=== PATIENT | female | born 1965 | race Caucasian/White ===

== ENCOUNTER → 2025-01-29 10:39 | Outpatient (REF) | payer BC, SELFPAY ==
[2025-01-29 11:25] LABS: % Basophils 0.3 % (0-2); % Eosinophils 0.6 % (0-6); % Immature Granulocytes 0.2 % (0-0.5); % Lymphocytes 14.7 % (20.5-51.1); % Monocytes 8.5 % (1.7-9.3); % Neutrophils 75.7 % (42.2-75.2); Absolute Lymphocytes 0.9 10^3/uL (1.2-3.4); Absolute Monocytes 0.5 10^3/uL (0.1-0.6); Absolute Neutrophils 4.8 10^3/uL (1.4-6.5); Hematocrit 37.5 % (37.0-47.0); Hemoglobin 12.4 g/dL (12.0-16.0); Mean Corp Hgb Conc. 33.1 g/dL (33.0-37.0); Mean Corpuscular Hgb 29.2 pg (27.0-31.0); Mean Corpuscular Volume 88.2 fL (81.0-99.0); Mean Platelet Volume 9.8 fL (7.4-10.4); Nucleated Red Blood Cells % 0 %; Platelet Count 173 10^3/uL (130-400); Red Blood Cell Count 4.25 10^6/uL (4.20-5.40); Red Cell Dist. Width 12.7 % (11.5-14.5); White Blood Cell Count 6.3 10^3/uL (4.8-10.8)
[2025-01-29 12:07] LABS: ALT (SGPT) 18 U/L (0-35); AST (SGOT) 19 U/L (14-36); Albumin 4.8 g/dl (3.5-5.0); Alkaline Phosphatase 123 U/L (38-126); Blood Urea Nitrogen 15 mg/dl (7-17); Calcium 9.9 mg/dl (8.4-10.2); Carbon Dioxide 31 mmol/L (22-30); Chloride 100 mmol/L (98-107); Glucose 103 mg/dl (70-99); Potassium 4.4 mmol/L (3.5-5.1); Sodium 138 mmol/L (135-145); Total Bilirubin 2.1 mg/dl (0.2-1.3); Total Protein 7.4 g/dl (6.3-8.2); eGFR > 60.00
== END ==
LOC: RAD 10:39
PROVIDERS: ATTENDING PHYSICIAN Nurse Practitioner Adult Health; FAMILY PHYSICIAN Nurse Practitioner Family
DX: R10.32 Left lower quadrant pain (principal)
CPT/HCPCS: 36415; 74177; 80053; 85025; 86140; Q9967

== ENCOUNTER 2025-03-01 07:02 | Emergency (ER) | payer BC, SELFPAY ==
[2025-03-01 07:06] VITALS: BP 142/91
[2025-03-01] MEDS: OMNIPAQUE 50 ML PO (07:28)
[2025-03-01 07:46] LABS: % Basophils 0.5 % (0-2); % Eosinophils 0.4 % (0-6); % Immature Granulocytes 0.3 % (0-0.5); % Lymphocytes 15.7 % (20.5-51.1); % Neutrophils 77.1 % (42.2-75.2); Absolute Lymphocytes 1.2 10^3/uL (1.2-3.4); Absolute Monocytes 0.4 10^3/uL (0.1-0.6); Absolute Neutrophils 5.7 10^3/uL (1.4-6.5); Hematocrit 37.5 % (37.0-47.0); Hemoglobin 12.8 g/dL (12.0-16.0); Mean Corp Hgb Conc. 34.1 g/dL (33.0-37.0); Mean Corpuscular Hgb 29.3 pg (27.0-31.0); Mean Corpuscular Volume 85.8 fL (81.0-99.0); Mean Platelet Volume 9.6 fL (7.4-10.4); Nucleated Red Blood Cells % 0 %; Platelet Count 210 10^3/uL (130-400); Red Blood Cell Count 4.37 10^6/uL (4.20-5.40); Red Cell Dist. Width 12.3 % (11.5-14.5); White Blood Cell Count 7.3 10^3/uL (4.8-10.8)
[2025-03-01 07:51] LABS: Urine Albumin Negative (Neg - Trace); Urine Bilirubin Negative (Negative); Urine Character Clear (Clear); Urine Color Yellow; Urine Glucose Negative (Negative); Urine Ketone Negative (Negative); Urine Leukocyte Negative (Negative); Urine Nitrite Negative (Negative); Urine Occult Blood 2+ (Negative); Urine Urobilinogen Negative (Neg - 1+)
[2025-03-01 07:54] LABS: ALT (SGPT) 18 U/L (0-35); AST (SGOT) 20 U/L (14-36); Albumin 4.5 g/dl (3.5-5.0); Alkaline Phosphatase 115 U/L (38-126); Blood Urea Nitrogen 12 mg/dl (7-17); Calcium 9.8 mg/dl (8.4-10.2); Carbon Dioxide 29 mmol/L (22-30); Chloride 103 mmol/L (98-107); Glucose 112 mg/dl (70-99); Lipase 84 U/L (23-300); Potassium 3.8 mmol/L (3.5-5.1); Sodium 141 mmol/L (135-145); Total Protein 7.5 g/dl (6.3-8.2); eGFR > 60.00
[2025-03-01 08:04] VITALS: BP 125/72
--- NOTE | 2025-03-01 08:09 | ED.GENMED ---
History of Present Illness
General
Chief Complaint: Abdominal Pain
Source: patient
Exam Limitations: none
Time Seen by Provider: 03/01/25 07:11
Nursing documentation reviewed up to this point in time: agreed with
History of Present Illness
History of Present Illness:
59-year-old female presenting to the emergency department today with concerns of left lower quadrant Emir pain initially started as lower abdominal pain now mainly to the left lower quadrant over the past 3 days or so. Recent history of
diverticulitis. She took ciprofloxacin and Flagyl at the time 1 month ago with improving symptoms at that time. Recurrent times of the past few days. No fevers no nausea or vomiting.
Review of Systems
Review of Systems
Allergies reviewed?: Yes
All Other Systems: ROS reviewed and negative except as documented in HPI and ROS
Phy Exam
Physical Exam
Physical Exam:
GENERAL: Alert , in no apparent distress
EYE: pupils equal and reactive
NECK: Supple, no significant adenopathy.
ENT: o/p clr, mmm.
CARDIAC: Regular rate and rhythm .
LUNGS: Clear breath sounds bilaterally, no acute respiratory distress, no wheezes/rales/rhonchi
ABDOMEN: Left lower quadrant abdominal pain otherwise soft benign abdomen
NEUROLOGICAL: Alert and oriented, no focal neuro deficits
SKIN: Warm and dry, skin intact.
MUSCULOSKELETAL: No edema, well perfused.
PSYCH: Normal and appropriate interaction.
Course
Orders/Labs/Results
Orders:
Orders
03/01/25 07:12
CT Abd/pel W Iv And Oral Contr Urgent
Comment:
Reason For Exam: llq pain recent diverticulitis
Iohexol [Omnipaque] See Protocol PO NOW STA
03/01/25 07:29
Complete Blood Count/With Diff Urgent
Comprehensive Metabolic Panel Urgent
Lipase Urgent
Urinalysis Reflex To Culture Urgent
Date Specimen was Collected: 03/01/25
Time Specimen was Collected: 07:27
Urine Microscopic Reflex Cult Urgent
03/01/25 09:57
Amoxicillin 875 mg/Clav 125 mg [Augmentin 875 mg/125 mg] 1 tablet PO NOW STA
Abnormal Lab Results
03/01/25
07:29
Neutrophils % 77.1 H %
(42.2-75.2)
Lymphocytes % 15.7 L %
(20.5-51.1)
Glucose 112 H mg/dl
(70-99)
Ur Occult Blood Reflex 2+ A
(Negative)
Urine RBC 3-6 A /HPF
(0-2)
Urine Bacteria (Reflex) Few A
(Negative)
03/01/25 07:29
03/01/25 07:29
Vital Signs
Initial and Last Documented VS:
Initial Vital Signs
Temp Pulse Resp BP Pulse Ox
98.2 F 99 16 142/91 98
03/01/25 07:06 03/01/25 07:06 03/01/25 07:06 03/01/25 07:06 03/01/25 07:06
Last Documented Vital Signs
Temp Pulse Resp BP Pulse Ox
98.2 F 75 14 131/69 96
03/01/25 07:06 03/01/25 09:00 03/01/25 09:00 03/01/25 09:00 03/01/25 08:04
MDM/Problems Addressed
MDM/Problems Addressed:
59-year-old female presenting with concerns of left lower quadrant abd pain worsening over the past few days. Recent history of diverticulitis. Fevers no nausea or vomiting vital signs normal here. Tenderness palpation to the left lower abdomen.
CT scan was performed that showed a mild diverticulitis. No signs of complications no abscess or perforation. Plan for treatment with antibiotic otherwise she will follow-up closely with gastroenterology.
*Critical Care Note
Total Time (30-74mins, 75-104mins- exclusive of procedures): Not Applicable
ED Attending Note
-
Portions of this chart may have been created with voice recognition software.� Occasional wrong word or��sound alike� substitutions may have occurred due to the inherent limitations of voice recognition software.
Discharge Plan
Departure
Patient Disposition: Home (Routine Discharge)
Date of Disposition: 03/01/25
Time of Disposition: 10:05
Patient with high blood pressure during this ER visit?: No
Condition: Good
Covid-19: Not Applicable
Discharge Problem:
Diverticulitis
Instructions: Diverticulitis (DC)
Prescriptions:
New
amoxicillin-pot clavulanate 875-125 mg tablet
1 tab PO BID 7 Days Qty: 14 0RF
No Action
atorvastatin 10 mg Tablet
10 mg PO DAILY
Referrals:
Carolin Gomez MD [Family Provider] -
Activity Restrictions/Additional Instructions:
You came to the emergency department today with concerns of abdominal pain. You are found to have mild diverticulitis. Please take the Augmentin twice daily and follow-up closely with GI appointment this afternoon. Return for any worsening, new
or concerning symptoms.
Interventions
Interventions:
*Risk Screen - Suicide Last Done: 03/01/25 07:06
*General Assessment Last Done: 03/01/25 07:34
*Neglect/Abuse Screening Last Done: 03/01/25 07:06
*ED- Fall Risk Assessment Last Done: 03/01/25 07:24
*ED COVID-19 Vaccine History Last Done: 03/01/25 07:24
XR-Zmwrcr-Sazkwxdvwy Assessment Last Done: 03/01/25 07:24
Discharge Date and Time
Print Language: ICELANDIC
[2025-03-01 08:42] LABS: Urine Bacteria Few (Negative); Urine White Cell 0-2 /HPF (0-5)
[2025-03-01 09:00] VITALS: BP 131/69
[2025-03-01] MEDS: AUGMENTIN 875 MG/125 MG 1 TABLET PO (10:06)
[2025-03-01] MEDS: TORADOL 30 MG IV (10:06)
== END 2025-03-01 10:32 | disposition home or self-care (01) ==
LOC: EMR 07:02
PROVIDERS: Physician Assistant; EMERGENCY PHYSICIAN Emergency Medicine; FAMILY PHYSICIAN Family Medicine
DX: K57.32 Diverticulitis of large intestine without perforation or abscess without bleeding (principal)
CPT/HCPCS: 96374; 99284; 74177; 80053; 81003; 81015; 83690; 85025; Q9967

== ENCOUNTER 2025-03-16 13:59 | Inpatient (IN) | payer BC, SELFPAY ==
[2025-03-16] VITALS (10 sets, daily range): BP systolic 115–144; BP diastolic 57–108; BMI 22.9
[2025-03-16] MEDS: NSS 500 IV (08:17)
--- NOTE | 2025-03-16 08:23 | ED.GENMED ---
History of Present Illness
General
Chief Complaint: Abdominal Pain
Source: patient
Exam Limitations: none
Time Seen by Provider: 03/16/25 07:46
History of Present Illness
History of Present Illness:
Patient was treated with 2 courses of antibiotics for presumed diverticulitis. Started in January. Initially on a quinolone plus Flagyl. Improved at that time then recurring symptoms in February. Repeat CT at that time showed diverticulosis with some
mild inflammatory changes. At that time was placed on Augmentin. Finished antibiotics 5 days ago. Throughout the last week has had some intermittent episodes of discomfort mostly left lower quadrant. No radiation to the back no nausea or
vomiting no urinary symptoms. No change in bowels. Presents for reevaluation
Past History
Past History
ED Past Medical History: Hypercholesterolemia
ED Past Surgical History: , Gynecological (Total hysterectomy) and Orthopedic
Review of Systems
Review of Systems
All Other Systems: Not applicable
Constitutional: Denies fever
ABD/GI: Denies diarrhea, bloody stools or black stools
: Reports no symptoms
Phy Exam
Physical Exam
Physical Exam:
GENERAL: Alert and oriented in no apparent distress
EYE: Orbits normal.
NECK: Supple
CARDIAC: Regular rate and rhythm without any obvious murmurs.
LUNGS: Clear breath sounds,normal
ABDOMEN: Soft, no distention. Bowel sounds present. Mild reproducible left lower quadrant tenderness. No hernia or masses
NEUROLOGICAL: Alert and oriented , grossly non-focal
SKIN: Warm and dry, no rash or lesion, no discoloration, skin intact.
MUSCULOSKELETAL: No edema,no deformity.Good color
PSYCH: Normal and appropriate interaction.
Course
Orders/Labs/Results
Orders:
Orders
03/16/25 07:57
IV Insert/Care/Rem.- Treatment PRN
0.9% Sodium Chloride 500 ml [Nss] 500 ml IV BOLUS
03/16/25 08:18
Complete Blood Count/With Diff Urgent
Comprehensive Metabolic Panel Urgent
Lipase Urgent
Urinalysis Reflex To Culture Urgent
Date Specimen was Collected: 03/16/25
Time Specimen was Collected: 08:17
Urine Microscopic Reflex Cult Urgent
Urine Culture Urgent
SHIRLEY Source: U
Specimen Description:
Date Specimen was Collected: 03/16/25
Time Specimen was Collected: 08:17
03/16/25 08:48
Iohexol [Omnipaque] See Protocol PO NOW STA
03/16/25 08:49
CT Abd/pel W Iv And Oral Contr Urgent
Comment:
Reason For Exam: Recurring left lower quadrant pain. Diverticuliti
03/16/25 12:34
Zosyn 3.375 grams IVPB NOW Piperacillin/Tazo 3.375 Gram [Zosyn] 3.375 gram in 50 ml IV NOW
Abnormal Lab Results
03/16/25
08:18
Hct 36.1 L %
(37.0-47.0)
Absolute Neuts (auto) 7.1 H 10^3/uL
(1.4-6.5)
Absolute Lymphs (auto) 0.9 L 10^3/uL
(1.2-3.4)
Neutrophils % 82.4 H %
(42.2-75.2)
Lymphocytes % 9.9 L %
(20.5-51.1)
Glucose 105 H mg/dl
(70-99)
Ur Occult Blood Reflex 3+ A
(Negative)
Leukocyte Esterase Rfl 1+ A
(Negative)
Urine WBC (Reflex) 11-15 A /HPF
(0-5)
Urine Bacteria (Reflex) Few A
(Negative)
Urine Albumin (Reflex) 1+ A
(Neg - Trace)
03/16/25 08:18
03/16/25 08:18
Vital Signs
Initial and Last Documented VS:
Initial Vital Signs
Temp Pulse Resp BP Pulse Ox
98.1 F 103 18 131/85 98
03/16/25 07:14 03/16/25 07:14 03/16/25 07:14 03/16/25 07:14 03/16/25 07:14
Last Documented Vital Signs
Temp Pulse Resp BP Pulse Ox
98.1 F 82 19 126/63 97
03/16/25 07:14 03/16/25 11:30 03/16/25 11:30 03/16/25 11:24 03/16/25 08:57
MDM/Problems Addressed
Differential Diagnosis Includes:
Patient describing likely recurring diverticulitis. Not describing urinary symptoms. Has had a total WARD/BSO. However reluctant to repeat the CAT scan at this time. Had a CAT scan in January and a CAT scan in February. Will discussed with GI.
*Radiology
Radiology exam reviewed: radiology read reviewed (Recurrent diverticulitis by CT.)
*Critical Care Note
Total Time (30-74mins, 75-104mins- exclusive of procedures): Not Applicable
Data Reviewed
Review of Other/Old Records Reveals: Labs, Records and Radiology Studies
Update Note
Update Note:
Recurrent diverticulitis by CT. 2 previous episodes both treated appropriately. Failed outpatient management. Warrants inpatient plan
ED Attending Note
-
Portions of this chart may have been created with voice recognition software.� Occasional wrong word or��sound alike� substitutions may have occurred due to the inherent limitations of voice recognition software.
Discharge Plan
Departure
Patient Disposition: Admit
Date of Disposition: 03/16/25
Time of Disposition: 12:35
Presentation/result/management discussed w/ accepting MD/DO: Hospitalist
Discharge Problem:
Recurrent diverticulitis
Prescriptions:
No Action
atorvastatin 10 mg Tablet
10 mg PO DAILY
amoxicillin-pot clavulanate 875-125 mg tablet
1 tab PO BID 7 Days Qty: 14 0RF
Referrals:
Carolin Gomez MD [Family Provider] -
Interventions
Interventions:
*Risk Screen - Suicide Last Done: 03/16/25 07:14
*General Assessment Last Done: 03/16/25 07:14
*Neglect/Abuse Screening Last Done: 03/16/25 07:14
*ED- Fall Risk Assessment Last Done: 03/16/25 08:02
*ED COVID-19 Vaccine History Last Done: 03/16/25 07:14
FA-Dypfhi-Pioaoczbxd Assessment Last Done: 03/16/25 08:02
Discharge Date and Time
Print Language: PAP[place]
[2025-03-16 08:40] LABS: Urine Albumin 1+ (Neg - Trace); Urine Bilirubin Negative (Negative); Urine Character Clear (Clear); Urine Color Yellow; Urine Glucose Negative (Negative); Urine Ketone Negative (Negative); Urine Leukocyte 1+ (Negative); Urine Nitrite Negative (Negative); Urine Occult Blood 3+ (Negative); Urine Specific Gravity 1.015 (<1.030); Urine Urobilinogen Negative (Neg - 1+)
[2025-03-16 08:47] LABS: % Basophils 0.3 % (0-2); % Eosinophils 0.2 % (0-6); % Immature Granulocytes 0.3 % (0-0.5); % Lymphocytes 9.9 % (20.5-51.1); % Monocytes 6.9 % (1.7-9.3); % Neutrophils 82.4 % (42.2-75.2); Absolute Lymphocytes 0.9 10^3/uL (1.2-3.4); Absolute Monocytes 0.6 10^3/uL (0.1-0.6); Absolute Neutrophils 7.1 10^3/uL (1.4-6.5); Hematocrit 36.1 % (37.0-47.0); Hemoglobin 12.7 g/dL (12.0-16.0); Mean Corp Hgb Conc. 35.2 g/dL (33.0-37.0); Mean Corpuscular Volume 85.3 fL (81.0-99.0); Mean Platelet Volume 9.9 fL (7.4-10.4); Nucleated Red Blood Cells % 0 %; Platelet Count 244 10^3/uL (130-400); Red Blood Cell Count 4.23 10^6/uL (4.20-5.40); Red Cell Dist. Width 12.4 % (11.5-14.5); White Blood Cell Count 8.6 10^3/uL (4.8-10.8)
[2025-03-16 08:49] LABS: ALT (SGPT) 15 U/L (0-35); AST (SGOT) 16 U/L (14-36); Albumin 3.9 g/dl (3.5-5.0); Alkaline Phosphatase 91 U/L (38-126); Blood Urea Nitrogen 11 mg/dl (7-17); Calcium 9.3 mg/dl (8.4-10.2); Carbon Dioxide 28 mmol/L (22-30); Chloride 106 mmol/L (98-107); Glucose 105 mg/dl (70-99); Lipase 53 U/L (23-300); Potassium 3.9 mmol/L (3.5-5.1); Sodium 142 mmol/L (135-145); Total Bilirubin 1.3 mg/dl (0.2-1.3); Total Protein 6.5 g/dl (6.3-8.2); eGFR > 60.00
[2025-03-16 08:51] LABS: Urine Squamous Cell >30 /LPF (Few)
[2025-03-16 08:53] LABS: Urine Bacteria Few (Negative)
[2025-03-16 08:54] LABS: Urine Hyaline Cast 0-2 /LPF (0-2); Urine Red Blood Cell 0-2 /HPF (0-2)
[2025-03-16] MEDS: OMNIPAQUE 50 ML PO (08:55)
[2025-03-16] MEDS: ZOSYN 50 IV ×2 (12:42→17:29)
--- NOTE | 2025-03-16 12:50 | HPS.HSE ---
Addendum entered and electronically signed by Panfilo Garcia MD 03/16/25 13:23:
See update note
Original Note:
Family Physician
-
Family Physician: Carolin Gomez MD
Chief Complaint
-
left lower quadarant pain
History of Present Illness
59 year old with PMH for HLD presented with left lower quadrant pain since January. patient stated intermittent non radiating pain.patient was on Quinolone and Flagyl , then she was started on Augmentin, which she finished the course 5 days ago.
denied nausea, vomiting or diarrhea. denied fever, chills, GARNICA, dizzy or syncope. denied chest pain, sob. denied dysuria or hematuria. patient stated left quadrant pain was worse last night. patient stated, some weight loss but she is low fiber diet.
she has appetite either.
CT with diverticulitis. initiated on Zosyn. admitting for further management.
Medical History
Past Medical History
Past Medical History: Reports Other
Additional Past Medical History:
diverticulosis
HLD
Past Surgical History: Reports Other
Additional Past Surgical History:
bunion removal
hysterectomy
Social History
Tobacco: Non-smoker
Alcohol: None
Drug: None
Living: With Family
Employment: Employed
Family History
Family History: Not pertinent
Allergies / Home Medications
Allergies reflects when Allergies were last updated in [facility].
Home Medications with original date entered in [facility]
Allergy/Medication List:
Allergies
Allergy/AdvReac Type Severity Reaction Status Date / Time
No Known Allergies Allergy Verified 03/16/25 07:16
Home Medications
atorvastatin 10 mg tablet 10 mg PO DAILY 03/01/25
calcium carbonate 500 mg PO DAILY 03/16/25
cholecalciferol (vitamin D3) 25 mcg (1,000 unit) tablet 25 mcg PO DAILY 03/16/25
Review of Systems
-
Constitutional: Reports No Symptoms
EENT: Reports No Symptoms
Respiratory: Reports No Symptoms
Cardiac: Reports No Symptoms
Abdomen/GI: Reports Abdominal Pain
: Reports No Symptoms
Musculoskeletal: Reports No Symptoms
Skin: Reports No Symptoms
Neurological: Reports No Symptoms
Endocrine: Reports No Symptoms
Hematologic/Lymphatic: Reports No Symptoms
Psych: Reports No Symptoms
Physical Exam
Vital Signs
Vital Signs
Temp Pulse Resp BP Pulse Ox
98.1 F 82 19 126/63 97
03/16/25 07:14 03/16/25 11:30 03/16/25 11:30 03/16/25 11:24 03/16/25 08:57
Physical Exam
General: Well Developed, Well Nourished and No Apparent Distress
HEENT: NormoCephalic, Moist mucous membranes and Atraumatic
Respiratory: Clear
Cardiac: S1/S2 and Regular Rhythm; No Murmur or Rub
GI: Soft, Non Tender, Non Distended and Normal Bowel Sounds; No Organomegaly
Rectal: Deferred by Provider
Musculoskeletal: No Clubbing, No Cyanosis and No Edema
Skin: No Rash
Neuro: AO x 3 and Nonfocal/grossly intact
Psych: Calm
Laboratory Results
-
03/16/25 08:18
03/16/25 08:18
Laboratory Results
Total Bilirubin 1.3 mg/dl (0.2-1.3) 03/16/25 08:18
AST 16 U/L (14-36) 03/16/25 08:18
ALT 15 U/L (0-35) 03/16/25 08:18
Alkaline Phosphatase 91 U/L (38-126) 03/16/25 08:18
Lipase 53 U/L (23-300) 03/16/25 08:18
Data Reviewed
-
CT Scan: Report Reviewed by me
Lab Data: Labs Reviewed by me
Impression/Plan
-
#recurrent diverticulitis
-failed outpatient management
-CT abdomen pelvis with interval recurrence of moderate diverticulitis within the proximal sigmoid colon. No extra luminal gas or fluid collections. There is also severe diverticular disease within the more distal sigmoid colon which appears
diffusely thickened, which is possibly chronic in nature. A sigmoid colitis is also consideration. Trace amount of free fluid in the pelvis.
-iv Zosyn continued
-NPO
-fluids continued for hydration.
-Tylenol prn for fever and pain
-colorectal consulted
#HLD
-statin held
#DVT prophylaxis
-Lovenox
#CODE status
-full code
--- NOTE | 2025-03-16 13:13 | W.PN.UPDATE ---
Update Note
Progress Note Update
This note serves as an addendum to the H&P by motor grader operator TRE
Imelda OLMAN
HPI
59F HLD HX diverticulitis , s/p 2 courses of ( LVQ + FDlagyl and then Augmentin) for presumed diverticulitis
- Started in January this year
- Initially on a quinolone plus Flagyl. Improved at that time then recurring symptoms in February.
- Repeat CT at that time showed diverticulosis with some mild inflammatory changes then placed on Augmentin.
Finished antibiotics 5 days ago.
- Throughout the last week has had some intermittent episodes of discomfort mostly left lower quadrant.
- No radiation to the back no nausea or vomiting no urinary symptoms.
- No change in bowels.
Selected VS
03/16/25
07:14 03/16/25
08:09
Temp 98.1 F
Pulse 103 81
Resp Rate 18
Blood pressure 131/85
SaO2 98
Oxygen Mode of Delivery Room air
PE
Gen: no apparent distress, not toxic
HEENT: anicteric
Neck: supple
Lungs: CTA
Cor: RRR S1 S2
Abdomen: Soft, no distention. Bowel sounds present. Mild reproducible left lower quadrant tenderness
HUNTING SALES LEADER: AAO3 , NFND
MS: no edema
Psych:Normal and appropriate interaction.
Labs
03/16/25
08:18
WBC 8.6
Hgb 12.7
Plt Count 244
Creatinine 0.6
eGFR > 60.00
Lipase 53
Urine WBC (Reflex) 11-[address] Abd/pel W Iv And Oral Contr
1. Interval recurrence of moderate diverticulitis within the proximal sigmoid colon.
No extra luminal gas or fluid collections.
There is also severe diverticular disease within the more distal sigmoid colon which appears diffusely thickened, which is possibly chronic in nature.
A sigmoid colitis is also consideration. Trace amount of free fluid in the pelvis.
2. Additional findings above.
NO PRIOR hospitalist admission:
ASSESSMENT & PLAN
Failed OP ABx ( LVQ + Flagyl and Augementin) Interval recurrence of diverticulitis
No extra luminal gas or fluid collections.
Underlying severe diverticular disease within the more distal sigmoid colon
- NPO and IV NS
- Empiric Zosyn
- F/U T, WCC and serial abdominal exam
- CRS consult
Abn UA : No urinary symptoms suspect reactive
- Observe UCx
HLD
- Hold Atorvastatin
DVT Px: LMWH
Code: Full
IP MS
--- NOTE | 2025-03-16 13:57 | CON.CRS ---
Documented by User: Emerita Vang PA-C 03/16/25 15:17
Consultation
-
Date/Time Consultation Requested: 03/16/2025, 13:18
Date/Time Consultation Performed: 03/16/2025, 14:30
Requesting Provider: Dhiraj RAMIREZ
Performing Provider: Roddy Pardo MD
Reason for Consultation: diverticulitis
Medical History
-
Chief Complaint: abdominal pain
History of Present Illness:
Patient is a 59-year-old female who has had left lower quadrant pain since last month. She was started on Augmentin as an outpatient and finished antibiotics about 5 days ago. The left lower quadrant pain was worse in nature last night and she
went to the emergency department. CT of the abdomen and pelvis shows interval recurrence of moderate diverticulitis within the proximal sigmoid colon. No extra luminal gas or fluid collections. There is also severe diverticular disease within the
more distal sigmoid colon which appears diffusely thickened, which is possibly chronic in nature. A sigmoid colitis is also consideration. Trace amount of free fluid in the pelvis. Previous to this CT scan she did have 1 on 03/01/2025 which showed
moderate diverticulosis in the sigmoid colon and inflammatory change to the adjacent sigmoid colon. She also had 1 in January 2025 which showed acute sigmoid diverticulitis. No evidence of an abscess or extraluminal air.
Her last colonoscopy was in [address] Andersen which showed mild diverticulosis in the sigmoid colon and descending colon. Otherwise normal.
This is her first attack of diverticulitis. Previous surgeries include a hysterectomy.
Past Medical History
Past Medical History: Other (diverticulosis, HLD)
Past Surgical History: Other (hysterectomy, bunion removal)
Social History
Tobacco: Non-Smoker
Alcohol: None
Drug: None
Family History
Family History: Reviewed & Not Pertinent
Allergies / Home Medications
Allergy/AdvReac Type Severity Reaction Status Date / Time
No Known Allergies Allergy Verified 03/16/25 07:16
�Medication �Instructions �Recorded �Confirmed �Type
atorvastatin 10 mg tablet 10 mg PO DAILY 03/01/25 03/16/25 History
calcium carbonate 500 mg PO DAILY 03/16/25 03/16/25 History
cholecalciferol (vitamin D3) 25 25 mcg PO DAILY 03/16/25 03/16/25 History
mcg (1,000 unit) tablet
Review of Systems
-
History Source: Patient
Abdomen/GI: Abdominal Pain (LLQ )
A 10 point review of systems was completed, and was negative except as per HPI.
Physical Exam
Vital Signs
Temp 98.1 F 03/16/25 07:14
Pulse 82 03/16/25 11:30
Resp Rate 19 03/16/25 11:30
Blood pressure 126/63 03/16/25 11:24
SaO2 97 03/16/25 08:57
03/15/25 03/16/25 03/17/25
06:59 06:59 06:59
Actual Weight 58.9 kg
Lab Results / Allergies
03/16/25 08:18
03/16/25 08:18
WBC 8.6 10^3/uL (4.8-10.8) 03/16/25 08:18
Hgb 12.7 g/dL (12.0-16.0) 03/16/25 08:18
Hct 36.1 % (37.0-47.0) L 03/16/25 08:18
Plt Count 244 10^3/uL (130-400) 03/16/25 08:18
Abs Immat Gran (auto) 0.0 10^3/uL (0-0.05) 03/16/25 08:18
Neutrophils % 82.4 % (42.2-75.2) H 03/16/25 08:18
Allergy/AdvReac Type Severity Reaction Status Date / Time
No Known Allergies Allergy Verified 03/16/25 07:16
Physical Exam
General: Well Developed and Well Nourished
GI: Soft
Skin: Warm and Dry
Neuro: AO x 3
Psych: Calm
Data Reviewed
-
CT Scan: Image Personally Visualized and interpreted, Report Reviewed by me and Discussed with Patient
Labs: Labs Reviewed by me, Discussed with Physician and Discussed with Patient
Old Records: Reviewed
Assessment / Plan
-
Assessment: 59-year-old female with smoldering sigmoid diverticulitis
Plan:
- Continue IV antibiotics
- Trend WBC
- Remain n.p.o.
- No need for urgent surgery at this time. If she will worsen she will require a colectomy with colostomy creation. Will follow.

Documented by User: Roddy Pardo MD 03/16/25 22:25
Medical History
Past Medical History
Past Surgical History: Other (hysterectomy, csection x2, bunion removal)
Family History
Family History: Other (father - prostate CA, no CRC)
[2025-03-16] MEDS: NSS 1000 IV (16:16)
--- NOTE | 2025-03-16 16:53 | CON.ID ---
Consultation
-
Date/Time Consultation Requested: March 16, 2025 1334
Date/Time Consultation Performed: March 16, 2025 1650
Requesting Provider: JAMES Vides
Performing Provider: Dr. Latisha Pappas
Reason for Consultation: recurrent diverticulitis
Chief Complaint / Past History
Chief Complaint
Abdominal pain
History of Present Illness
59-year-old female without significant medical problems who presented to the hospital yesterday due to worsening abdominal pain. Her history started in early January when she developed lower abdominal pain. Her PCP ordered CT of the abdomen pelvis
which showed sigmoid diverticulitis. She was prescribed 10-day course of ciprofloxacin and metronidazole with some improvement without resolution. On March 01 she presented to the ER due to worsening cramping abdominal pain. CAT scan at that time
showed significant improvement of the previous diverticulitis, resolving. ED prescribed 10-day course of Augmentin. She completed the Augmentin approximately 5 days prior to admission. She continued to have abdominal discomfort which then became
more severe the night prior and therefore she came to the ER. She is afebrile. Normal white count. CAT scan of the abdomen pelvis shows the recurrence of moderate proximal sigmoid colon diverticulitis. She started on Zosyn. Patient denies
fevers or chills. No nausea or vomiting. No diarrhea. No prior history of diverticulitis in the past.
Past History
Additional Past Medical History:
HLD
Diverticulosis
Additional Past Surgical History:
Hysterectomy
Allergy History:
No Known Allergies Allergy (Verified 03/16/25 07:16)
Medications Reviewed: Yes
Current Antibiotics:
Zosyn
Social History
Tobacco: Non-Smoker
Alcohol: None
Drug: None
Employment: Employed (physical laboratory assistant)
Family History
Family History: Not Pertinent
Review of Systems
Review of Systems
General: Change in Appetite; Negative Fever or Chills
HEENT: Negative Sinus Problems, Headache or Pharyngitis
Cardiovascular: Negative Chest Pain or Dyspnea
Respiratory: Negative Dyspnea or Cough
Gasteroenterology: Negative Nausea, Vomiting or Diarrhea
Genital / Urological: Negative Dysuria or Flank Pain
Endocrine: Negative Weakness
Skin / Hair / Nails: Negative Rash
All systems: All other systems were reviewed and were negative
Vital Signs
Temp Pulse Resp BP Pulse Ox
98.3 F 87 17 144/73 96
03/16/25 16:03 03/16/25 16:03 03/16/25 16:03 03/16/25 16:03 03/16/25 16:03
Physical Exam
Physical Exam
Constitutional: No Acute Distress and Comfortable
Eyes: No Conjunctival Hemorrhage and Sclera Anicteric
Cardiovascular: Regular Rate and S1/S2
Pulmonary: Clear
Gastrointestinal: Soft, Tender (Left lower quadrant), Non Distended and Normal Bowel Sounds
Extremities: Negative Edema
Neurological: AO x 3
Lab / Diagnostic Study Results
03/16/25 08:18
03/16/25 08:18
Abs Immat Gran (auto) 0.0 10^3/uL (0-0.05) 03/16/25 08:18
Absolute Neuts (auto) 7.1 10^3/uL (1.4-6.5) H 03/16/25 08:18
Absolute Lymphs (auto) 0.9 10^3/uL (1.2-3.4) L 03/16/25 08:18
Absolute Monos (auto) 0.6 10^3/uL (0.1-0.6) 03/16/25 08:18
Absolute Basos (auto) 0.0 10^3/uL (0-0.2) 03/16/25 08:18
Immature Gran % 0.3 % (0-0.5) 03/16/25 08:18
Neutrophils % 82.4 % (42.2-75.2) H 03/16/25 08:18
Lymphocytes % 9.9 % (20.5-51.1) L 03/16/25 08:18
Monocytes % 6.9 % (1.7-9.3) 03/16/25 08:18
Eosinophils % 0.2 % (0-6) 03/16/25 08:18
Basophils % 0.3 % (0-2) 03/16/25 08:18
Ur Squamous Epith Cells >30 /LPF (Few) 03/16/25 08:18
Microbiology Results
Micro:
03/16/25 08:18 Urine Culture - Pending
Urine
03/16/25 CT a/p: Interval recurrence of moderate diverticulitis within the proximal sigmoid colon. No extra luminal gas or fluid collections. There is also severe diverticular disease within the more distal sigmoid colon which appears diffusely
thickened, which is possibly chronic in nature. A sigmoid colitis is also consideration.
03/01/25 CT a/p: Moderate sigmoid diverticulosis. Very mild inflammatory change adjacent to the sigmoid colon, significantly improved compared to prior study, consistent with significantly improved sigmoid diverticulitis.
01/29/25 CT a/p: Findings consistent with acute sigmoid diverticulitis. Pronounced inflammatory change adjacent to the proximal sigmoid colon, and small amount of reactive free fluid along the left paracolic gutter.
Assessment / Plan
# Sigmoid diverticulitis waxing, waning sxs x 2 months despite 2 courses of outpt abx
- Continue Zosyn.
-Follow for clinical improvement.
[2025-03-16] MEDS: LOVENOX 40 MG SC (17:29)
--- NOTE | 2025-03-16 19:28 | PTCARENOTE ---
Patient transferred from [facility] and expresses no needs at this time.
[2025-03-17] MEDS: ZOSYN 50 IV ×5 (00:18→23:22)
[2025-03-17] MEDS: TORADOL 15 MG IV (00:37)
[2025-03-17] MEDS: NSS 1000 IV ×3 (04:43→22:38)
[2025-03-17 07:00] VITALS: BP 109/80
[2025-03-17] MEDS: OSCAL CAL 500 500 MG PO (08:20)
[2025-03-17] MEDS: VITAMIN D3 (cholecalciferol) 25 MCG PO (08:20)
[2025-03-17 09:08] LABS: Hematocrit 33.4 % (37.0-47.0); Hemoglobin 11.5 g/dL (12.0-16.0); Mean Corp Hgb Conc. 34.4 g/dL (33.0-37.0); Mean Corpuscular Hgb 29.2 pg (27.0-31.0); Mean Corpuscular Volume 84.8 fL (81.0-99.0); Platelet Count 197 10^3/uL (130-400); Red Blood Cell Count 3.94 10^6/uL (4.20-5.40); Red Cell Dist. Width 12.4 % (11.5-14.5); White Blood Cell Count 9.5 10^3/uL (4.8-10.8)
[2025-03-17 09:44] LABS: ALT (SGPT) 12 U/L (0-35); AST (SGOT) 15 U/L (14-36); Albumin 3.9 g/dl (3.5-5.0); Alkaline Phosphatase 97 U/L (38-126); Blood Urea Nitrogen 10 mg/dl (7-17); Calcium 8.7 mg/dl (8.4-10.2); Carbon Dioxide 20 mmol/L (22-30); Chloride 109 mmol/L (98-107); Estimated Creatinine Clearance 84 ml/min; Glucose 67 mg/dl (70-99); Magnesium 1.7 mg/dl (1.6-2.3); Potassium 3.5 mmol/L (3.5-5.1); Sodium 143 mmol/L (135-145); Total Bilirubin 2.1 mg/dl (0.2-1.3); Total Protein 6.1 g/dl (6.3-8.2); eGFR > 60.00
--- NOTE | 2025-03-17 11:03 | W.PN.GS2 ---
Addendum entered and electronically signed by Harjit Diana MD 03/17/25 12:16:
Patient seen and examined with surgical TOMBSTONE SETTER. Agree with documented progress note.
Pain a bit improved compared to presentation yesterday. Still with discomfort.
Multiple loose/frequent bowel movements
No nausea or vomiting.
Tmax 100 low-grade tachycardia on last vitals
NAD AAO x 3 resting comfortably in hospital bed
ABD: Soft, nondistended. Mild tenderness to palpation left lower quadrant but no rebound rigidity or guarding
A/P: 59-year-old female with subacute smoldering sigmoid diverticulitis which has been fluctuating and symptoms since January
Continue Zosyn
Checking C. difficile
Okay for clear liquids
Will follow
Original Note:
Today's Communication / Plan
-
ABX
CLD
Assessment / Plan
-
59 yo female presenting with acute recurrent versus smoldering sigmoid diverticulitis (first episode in january and again earlier this month, managed as OP with PO agents)
AFVSS
No Leukocytosis
Diarrhea overnight likely secondary to inflammatory changes/PO contrast, c-diff was sent and pending
Pain starting to improve
--ABX as per ID
--Ok for clear liquids
--Analgesics prn
--C/W IVF
--VTE ppx with lovenox/scds
No plans for emergent surgery today, will follow labs/exams for continued improvement
Subjective Data
-
Date of Service: March 17, 2025
Patient seen and examined at bedside with Dr. Diana. Denies n/v. Began having diarrhea overnight. Pain mildly improved.
Objective Data
-
Intake and Output
03/16/25 03/17/25 03/18/25
06:59 06:59 06:59
Other:
Number of approximated MODERATE 1
amounts of urine
Vital Signs
Temp Pulse Resp BP Pulse Ox
100.0 F 108 16 109/80 94
03/17/25 07:00 03/17/25 07:00 03/17/25 07:00 03/17/25 07:00 03/17/25 08:00
Lab Results
03/17/25 06:58
03/17/25 06:58
Calcium 8.7 mg/dl (8.4-10.2) 03/17/25 06:58
Magnesium 1.7 mg/dl (1.6-2.3) 03/17/25 06:58
Total Bilirubin 2.1 mg/dl (0.2-1.3) H D 03/17/25 06:58
AST 15 U/L (14-36) 03/17/25 06:58
ALT 12 U/L (0-35) 03/17/25 06:58
Alkaline Phosphatase 97 U/L (38-126) 03/17/25 06:58
Total Protein 6.1 g/dl (6.3-8.2) L 03/17/25 06:58
Albumin 3.9 g/dl (3.5-5.0) 03/17/25 06:58
Physical Exam
-
NAD
ABD soft, ND, tender to LLQ into suprapubic area
--- NOTE | 2025-03-17 11:19 | W.PN.ID1 ---
Date of Service
Date of Service: March 17, 2025
Today's Communication
Continue Zosyn. Check C. diff.
Assessment / Plan
# Sigmoid diverticulitis waxing, waning sxs x 2 months despite 2 courses of outpt abx
- Continue Zosyn (d2)
-Follow for clinical improvement.
# Diarrhea
- Check stool for C. diff.
Chief Complaint
-: Other (Diverticulitis)
Subjective / Review of Systems
Abdominal pain is the same. Complaining of diarrhea every 2 hours.
Vital Signs / Physical Exam
Vital Signs
Vital Signs
Temp Pulse Resp BP Pulse Ox
100.0 F 108 16 109/80 94
03/17/25 07:00 03/17/25 07:00 03/17/25 07:00 03/17/25 07:00 03/17/25 08:00
Physical Exam
Constitutional: No Acute Distress and Comfortable
Cardiovascular: Regular Rate and S1/S2
Pulmonary: Clear
Gastrointestinal: Tender (Left lower quadrant), Non Distended and Normal Bowel Sounds
Extremities: Negative Edema
Neurological: AO x 3
Objective Data
Lab Data
Lab Results
03/17/25 06:58
03/17/25 06:58
Estimated Creat Clear 84 ml/min 03/17/25 06:58
Total Bilirubin 2.1 mg/dl (0.2-1.3) H D 03/17/25 06:58
AST 15 U/L (14-36) 03/17/25 06:58
ALT 12 U/L (0-35) 03/17/25 06:58
Alkaline Phosphatase 97 U/L (38-126) 03/17/25 06:58
Most recent labs reviewed.
Micro Results:
03/16/25 08:18 Urine Culture - Final
Urine
03/17/25 11:01 C. difficile GDH Antigen & Toxins - Pending
Feces/Stool
03/16/25 CT a/p: Interval recurrence of moderate diverticulitis within the proximal sigmoid colon. No extra luminal gas or fluid collections. There is also severe diverticular disease within the more distal sigmoid colon which appears diffusely
thickened, which is possibly chronic in nature. A sigmoid colitis is also consideration.
03/01/25 CT a/p: Moderate sigmoid diverticulosis. Very mild inflammatory change adjacent to the sigmoid colon, significantly improved compared to prior study, consistent with significantly improved sigmoid diverticulitis.
01/29/25 CT a/p: Findings consistent with acute sigmoid diverticulitis. Pronounced inflammatory change adjacent to the proximal sigmoid colon, and small amount of reactive free fluid along the left paracolic gutter.
--- NOTE | 2025-03-17 12:45 | W.PN.HOSP.TC ---
Addendum entered and electronically signed by Lissette Bee MD 03/17/25 16:40:
I saw and evaluated the patient independently. I reviewed the resident�s note and agree with findings and plan as documented by Dr. Collazo.
GENERAL: well developed, well nourished, female in no apparent distress
HEENT: NC/AT
HEART: regular rate and rhythm, +S1, +S2
LUNGS : clear to auscultation bilaterally
ABDOM: soft, tender LLQ without guarding or rebound, nondistended, + bowel sounds
EXT: no cyanosis, clubbing, or edema
NEUROLOGIC: grossly intact
Recurrent diverticulitis secondary to failure with 2 courses of antibiotics--confirmed on CT scan--clears/IVF--IV zosyn--c. diff positive--so dificid added--apprec ID/CRS--pain control as needed
C. difficile infection positive--Patient started on fidaxomicin 200 mg twice daily
Hyperbilirubinemia-- Total bilirubin is 2.1 and elevated, continue to trend--? Gilbert's disease?
Hyperlipidemia-- Atorvastatin on hold due to limited PO status
Osteopenia-- Continue ELECTRIC WIRER cholecalciferol and calcium carbonate
DVT proph--Lovenox
code status --Full code
Original Note:
Today's Communication/Plan
-
- F/u with Infectious disease
- Continue current antibiotic regime
Assessment / Plan
Assessment / Plan
Recurrent chronic diverticulitis secondary to failure with 2 courses of antibiotics:
- Confirmed on abdomen/pelvis CT
- Continue patient on n.p.o.
- Continue IV fluids
- Continue IV Zosyn, infectious diseases also recommends continuing IV Zosyn, wbc 8.4 and normal, afebrile
- Infectious disease following
- Patient advanced to clear liquids by general surgery
- On Tylenol and Toradol for as needed pain relief
- Colorectal surgery saw her and recommended nonoperative management and repeat colonoscopy in 6 to 8 weeks
C. difficile infection positive:
-Patient started on fidaxomicin 200 mg twice daily
- Hand hygiene and contact precautions in place
Hyperbilirubinemia:
- Total bilirubin is 2.1 and elevated, continue to trend
Hyperlipidemia:
- Atorvastatin on hold due to limited PO status
Osteopenia:
- Continue ELECTRIC WIRER cholecalciferol and calcium carbonate
- calcium level is 8.7 and normal
DVT prophylaxis is Lovenox 40 mg
Full code
Anticipated Discharge: 24 - 48 hours
Subjective/Interval History
-
Date of Service: March 17, 2025
59-year-old female with a past medical history of hyperlipidemia and diverticulosis presented with left lower quadrant pain. A abdominal pelvic CT confirmed that she had diverticulitis. She has had 2 episodes of diverticulitis both confirmed by CT
scan of the abdomen 2 times in the past year. She has been on 2 courses of antibiotics, the first time on quinolone plus Flagyl than the second time on Augmentin ( finished just 5 days ago).
Today she is complaining of multiple episodes of watery diarrhea this morning.
Objective Data
-
Labs:
Laboratory Results
03/17/25
06:58
WBC 9.5
Hgb 11.5 L
Hct 33.4 L
Plt Count 197
Sodium 143
Potassium 3.5
Chloride 109 H
Carbon Dioxide 20 L
BUN 10
Creatinine 0.6
Glucose 67 L
Calcium 8.7
Total Bilirubin 2.1 H D
AST 15
ALT 12
Alkaline Phosphatase 97
Vital Signs:
Vital Signs
Temp Pulse Resp BP Pulse Ox
100.0 F 108 16 109/80 94
03/17/25 07:00 03/17/25 07:00 03/17/25 07:00 03/17/25 07:00 03/17/25 08:00
Review of Systems
-
History Source: Patient
Constitutional: Denies Fever, Fatigue or Chills
Respiratory: Denies Cough, Hemoptysis or Wheezing
Cardiac: Denies Chest Pain, Diaphoresis or Palpitations
Abdomen/GI: Reports Abdominal Pain and Diarrhea; Denies Nausea, Vomiting, Constipated, Bloody Stools or Anorexia
Genitourinary: Denies Dysuria
Musculoskeletal: Denies Joint Pain, Joint Swelling, Arthralgias or Myalgias
Skin: Denies Itching or Rash
Neuro: Denies Dizzy, Headache or Weakness
Physical Exam
-
General: Well Developed, Well Nourished and Comfortable
Respiratory: Clear to Auscultation
Cardiac: Regular Rhythm and S1/S2
GI: Soft, Nondistended, Normal Bowel Sounds and Tender (Mild left lower tenderness on palpation)
Musculoskeletal: Negative No Clubbing or No Edema
Skin: Warm and Dry
Neuro: Awake, Alert, Oriented and AO x 3
Data Reviewed
-
CT Scan: Report Reviewed by me and Discussed with Physician
Labs: Labs Reviewed by me and Discussed with Physician
[2025-03-17] MEDS: DIFICID 200 MG PO ×2 (14:41→19:26)
[2025-03-17 15:50] VITALS: BP 128/58
--- NOTE | 2025-03-17 16:38 | PTCARENOTE ---
Rec'd pt from [id number] bed 2. pt ambulated to room. Denies pain. Oriented to room. call alas in reach.
[2025-03-17] MEDS: LOVENOX 40 MG SC (17:36)
[2025-03-17 23:00] VITALS: BP 109/59
[2025-03-18] MEDS: ZOSYN 50 IV ×4 (05:30→23:09)
[2025-03-18 07:00] VITALS: BP 112/57
[2025-03-18 07:15] LABS: Hematocrit 29.4 % (37.0-47.0); Hemoglobin 10.1 g/dL (12.0-16.0); Mean Corp Hgb Conc. 34.4 g/dL (33.0-37.0); Mean Corpuscular Hgb 29.2 pg (27.0-31.0); Mean Platelet Volume 9.6 fL (7.4-10.4); Platelet Count 172 10^3/uL (130-400); Red Blood Cell Count 3.46 10^6/uL (4.20-5.40); Red Cell Dist. Width 12.5 % (11.5-14.5); White Blood Cell Count 7.2 10^3/uL (4.8-10.8)
[2025-03-18 07:35] LABS: Blood Urea Nitrogen 4 mg/dl (7-17); Calcium 8.4 mg/dl (8.4-10.2); Carbon Dioxide 24 mmol/L (22-30); Chloride 109 mmol/L (98-107); Estimated Creatinine Clearance 72 ml/min; Glucose 96 mg/dl (70-99); Potassium 3.7 mmol/L (3.5-5.1); Sodium 142 mmol/L (135-145); eGFR > 60.00
[2025-03-18] MEDS: DIFICID 200 MG PO ×2 (08:36→19:59)
[2025-03-18] MEDS: OSCAL CAL 500 500 MG PO (08:36)
[2025-03-18] MEDS: VITAMIN D3 (cholecalciferol) 25 MCG PO (08:36)
[2025-03-18] MEDS: NSS 1000 IV ×2 (09:46→21:14)
--- NOTE | 2025-03-18 10:06 | W.PN.GS2 ---
Addendum entered and electronically signed by Harjit Diana MD 03/18/25 10:38:
Patient seen and examined. Feeling better.
Tolerating liquid diet without exacerbation of pain.
Continues with frequent loose stools.
AFVSS
ABD: Soft, very minimal tenderness left side without any rebound rigidity or guarding
A/P: 59-year-old female with subacute/persistent sigmoid diverticulitis (without abscess or phlegmon)and now superimposed C. difficile colitis
Appreciate ID assistance with antibiotic management
Given clinical improvement okay for low residue diet as tolerated
Original Note:
Today's Communication / Plan
-
ADAT
Assessment / Plan
-
59 yo female presenting with acute recurrent versus smoldering sigmoid diverticulitis (first episode in january and again earlier this month, managed as OP with PO agents)
AFVSS
No Leukocytosis
+C-diff, started on Dificid 03/17
Pain continues to improve
--ABX management as per ID
--Tolerating clears, ok to ADAT to low residue
--Analgesics prn
--C/W IVF
--VTE ppx with lovenox/scds
Will continue to follow labs/exams for improvement, no plans for surgery emergently
Subjective Data
-
Date of Service: March 18, 2025
Patient seen and examined at bedside with Dr. Diana. Denies n/v. Abdominal pain improving. Diarrhea persists, passing liquid stools every time she voids.
Objective Data
-
Intake and Output
03/17/25 03/18/25 03/19/25
06:59 06:59 06:59
Intake Total 1779
Balance 1779 / 1779
Intake:
Oral fluids 480 / 480
IV fluids (Total) 1200 / 1200
IV piggybacks 100 / 100
Other:
Number of approximated MODERATE 1 1
amounts of urine
Number of approximated LARGE 1
amounts of urine
Vital Signs
Temp Pulse Resp BP Pulse Ox
98.7 F 70 18 112/57 99
03/18/25 07:00 03/18/25 07:00 03/18/25 07:00 03/18/25 07:00 03/18/25 07:00
Lab Results
03/18/25 06:51
03/18/25 06:51
Calcium 8.4 mg/dl (8.4-10.2) 03/18/25 06:51
Magnesium 1.7 mg/dl (1.6-2.3) 03/17/25 06:58
Total Bilirubin 2.1 mg/dl (0.2-1.3) H D 03/17/25 06:58
AST 15 U/L (14-36) 03/17/25 06:58
ALT 12 U/L (0-35) 03/17/25 06:58
Alkaline Phosphatase 97 U/L (38-126) 03/17/25 06:58
Total Protein 6.1 g/dl (6.3-8.2) L 03/17/25 06:58
Albumin 3.9 g/dl (3.5-5.0) 03/17/25 06:58
Physical Exam
-
NAD
ABD soft, ND, tender to LLQ (mild), no rebound/rigidity/guarding
--- NOTE | 2025-03-18 11:14 | W.PN.HOSP.TC ---
Today's Communication/Plan
-
- F/u with Infectious disease
- F/u general surgery
- Continue current antibiotic regime
- F/u colonoscopy outpatient
Assessment / Plan
Assessment / Plan
Recurrent chronic diverticulitis secondary to failure with 2 courses of antibiotics:
- On physical exam today, she is still has slight mild tenderness of her left lower abdomen
- Confirmed on abdomen/pelvis CT
- Continue IV fluids
- Continue IV Zosyn, infectious diseases also recommends continuing IV Zosyn, wbc 7.2 and normal, afebrile
- Infectious disease following
- Patient advanced to low residue as per general surgery recommendation
- On Tylenol and Toradol for as needed pain relief
- Colorectal surgery saw her and recommended nonoperative management and repeat colonoscopy in 6 to 8 weeks
C. difficile infection positive:
- patient is still having loose bowel movements today
-Patient started on fidaxomicin 200 mg twice daily
- Hand hygiene and contact precautions in place
Hyperbilirubinemia:
- Total bilirubin is 2.1 and elevated, continue to trend
Hyperlipidemia:
- Atorvastatin on hold due to limited PO status
Osteopenia:
- Continue POLICE MANAGER cholecalciferol and calcium carbonate
- calcium level is 8.4 and normal
DVT prophylaxis is Lovenox 40 mg
Full code
Anticipated Discharge: 24 - 48 hours
Subjective/Interval History
-
Date of Service: March 18, 2025
Patient is still having watery diarrhea, 3-4 episodes, decreased in intensity since yesterday.
Objective Data
-
Labs:
Laboratory Results
03/18/25
06:51
WBC 7.2
Hgb 10.1 L
Hct 29.4 L
Plt Count 172
Sodium 142
Potassium 3.7
Chloride 109 H
Carbon Dioxide 24
BUN 4 L
Creatinine 0.7
Glucose 96
Calcium 8.4
Vital Signs:
Vital Signs
Temp Pulse Resp BP Pulse Ox
98.7 F 70 18 112/57 99
03/18/25 07:00 03/18/25 07:00 03/18/25 07:00 03/18/25 07:00 03/18/25 07:00
I&O
03/17/25 03/18/25 03/19/25
06:59 06:59 06:59
Intake Total 1779
Balance 1779
Review of Systems
-
History Source: Patient
All other systems: Reviewed and negative
Abdomen/GI: Reports Abdominal Pain and Diarrhea (watery diarrhea)
Physical Exam
-
General: Well Developed, Well Nourished and Comfortable
Respiratory: Clear to Auscultation
Cardiac: Regular Rhythm and S1/S2
GI: Soft, Nondistended, Normal Bowel Sounds and Tender (Mild left lower tenderness on palpation)
Musculoskeletal: Negative No Clubbing or No Edema
Skin: Warm and Dry
Neuro: Awake, Alert, Oriented and AO x 3
Data Reviewed
-
Labs: Labs Reviewed by me and Discussed with Physician
--- NOTE | 2025-03-18 11:30 | W.PN.UPDATE ---
Update Note
Progress Note Update
I saw and evaluated the patient. I reviewed the resident�s note and agree with findings and plan as documented in the resident�s note.
Stool is becoming more formed.
Gen: NAD, AAOx3.
Eyes: EOMI, PERRLA, no scleral icterus.
Neck: supple.
CV: RRR, +S1/S2, no m/r/g.
Resp: CTAB, no rales, wheezes, or rhonchi.
Abd: +BS, soft, NT, ND
Skin: No rashes.
Neuro: CN 2-12 intact, non-focal.
Psych: Normal mood and affect.
CT A/P: Interval recurrence of moderate diverticulitis within the proximal sigmoid colon. No extra luminal gas or fluid collections. There is also severe diverticular disease within the more distal sigmoid colon which appears diffusely thickened,
which is possibly chronic in nature. A sigmoid colitis is also consideration. Trace amount of free fluid in the pelvis.
Recurrent diverticulitis:
-has failed 2 courses of antibiotics
-with C diff colitis
-cont Dificid/Zosyn
-advanced to LR diet
-ID following
Other problems:
Hyperbilirubinemia: trend
Hyperlipidemia: Restart statin
Osteopenia: Continue [employer] cholecalciferol and calcium carbonate
FULL/Lovenox
--- NOTE | 2025-03-18 11:59 | W.PN.ID1 ---
Date of Service
Date of Service: March 18, 2025
Today's Communication
Continue Zosyn and fidaxomicin.
Assessment / Plan
# Sigmoid diverticulitis waxing, waning sxs x 2 months despite 2 courses of outpt abx
- Continue Zosyn (d3)
# C. diff Diarrhea, first episode
- Continue fidaxomicin 200mg po bid x 10 days through 03/26/25, followed by prophylactic po Vancomycin 125mg poi bid while on systemic antibiotic.
- Follow stool output.
- Enhanced isolation.
Chief Complaint
-: C-diff and Other (Diverticulitis)
Subjective / Review of Systems
Diarrhea is more formed.
Abd pain is better today.
Vital Signs / Physical Exam
Vital Signs
Vital Signs
Temp Pulse Resp BP Pulse Ox
98.7 F 70 18 112/57 99
03/18/25 07:00 03/18/25 07:00 03/18/25 07:00 03/18/25 07:00 03/18/25 07:00
Physical Exam
Constitutional: No Acute Distress and Comfortable
Cardiovascular: Regular Rate and S1/S2
Pulmonary: Clear
Gastrointestinal: Tender (Left lower quadrant - milder), Non Distended and Normal Bowel Sounds
Extremities: Negative Edema
Neurological: AO x 3
Objective Data
Lab Data
Lab Results
03/18/25 06:51
03/18/25 06:51
Estimated Creat Clear 72 ml/min 03/18/25 06:51
Total Bilirubin 2.1 mg/dl (0.2-1.3) H D 03/17/25 06:58
AST 15 U/L (14-36) 03/17/25 06:58
ALT 12 U/L (0-35) 03/17/25 06:58
Alkaline Phosphatase 97 U/L (38-126) 03/17/25 06:58
Most recent labs reviewed.
Micro Results:
03/17/25 11:01 C. difficile GDH Antigen & Toxins - Final
Feces/Stool Toxigenic C.difficile Positive
03/16/25 08:18 Urine Culture - Final
Urine
03/16/25 CT a/p: Interval recurrence of moderate diverticulitis within the proximal sigmoid colon. No extra luminal gas or fluid collections. There is also severe diverticular disease within the more distal sigmoid colon which appears diffusely
thickened, which is possibly chronic in nature. A sigmoid colitis is also consideration.
03/01/25 CT a/p: Moderate sigmoid diverticulosis. Very mild inflammatory change adjacent to the sigmoid colon, significantly improved compared to prior study, consistent with significantly improved sigmoid diverticulitis.
01/29/25 CT a/p: Findings consistent with acute sigmoid diverticulitis. Pronounced inflammatory change adjacent to the proximal sigmoid colon, and small amount of reactive free fluid along the left paracolic gutter.
Care Review
Plan reviewed with: Physician (Dr. Diana)
[2025-03-18 15:00] VITALS: BP 130/62
[2025-03-18] MEDS: LOVENOX 40 MG SC (18:19)
[2025-03-18] MEDS: NSS IV (20:04)
[2025-03-18 23:33] VITALS: BP 115/60
[2025-03-19] MEDS: ZOSYN 50 IV ×3 (05:46→17:09)
[2025-03-19 07:30] VITALS: BP 120/58
[2025-03-19] MEDS: VITAMIN D3 (cholecalciferol) 25 MCG PO (08:19)
[2025-03-19] MEDS: DIFICID 200 MG PO ×2 (08:19→19:03)
[2025-03-19] MEDS: OSCAL CAL 500 500 MG PO (08:19)
[2025-03-19] MEDS: NSS 1000 IV (08:20)
[2025-03-19 08:25] LABS: Hematocrit 29.9 % (37.0-47.0); Hemoglobin 10.3 g/dL (12.0-16.0); Mean Corp Hgb Conc. 34.4 g/dL (33.0-37.0); Mean Corpuscular Hgb 29.3 pg (27.0-31.0); Mean Corpuscular Volume 84.9 fL (81.0-99.0); Mean Platelet Volume 9.6 fL (7.4-10.4); Platelet Count 188 10^3/uL (130-400); Red Blood Cell Count 3.52 10^6/uL (4.20-5.40); Red Cell Dist. Width 12.6 % (11.5-14.5); White Blood Cell Count 4.3 10^3/uL (4.8-10.8)
--- NOTE | 2025-03-19 08:59 | W.PN.HOSP.TC ---
Today's Communication/Plan
-
- F/u with Infectious disease
- F/u general surgery
- Continue current antibiotic regime
- F/u colonoscopy outpatient
Assessment / Plan
Assessment / Plan
Recurrent chronic diverticulitis secondary to failure with 2 courses of antibiotics:
- On physical exam today, she is still has slight mild tenderness of her left lower abdomen
- Confirmed on abdomen/pelvis CT
- Continue IV fluids
- Continue IV Zosyn, infectious diseases also recommends continuing IV Zosyn, wbc 4.3 , afebrile
- Infectious disease following
- Patient advanced to low residue as per general surgery recommendation
- On Tylenol and Toradol for as needed pain relief
- Colorectal surgery saw her and recommended nonoperative management and repeat colonoscopy in 6 to 8 weeks
Leucopenia:
- wbc is 4.3
- Suspect due to Zosyn
- Will continue to trend wbc count
- Will check absolute neutrophil count in the AM
C. difficile infection positive:
- patient is still having loose bowel movements today
-Patient started on fidaxomicin 200 mg twice daily x 10 days followed by vanco 125 po
- Hand hygiene and contact precautions in place
Hyperbilirubinemia:
- Total bilirubin is 2.1 and elevated, continue to trend
Hyperlipidemia:
- Atorvastatin on hold due to limited PO status
Osteopenia:
- Continue [employer]IST cholecalciferol and calcium carbonate
- calcium level is 8.4 and normal
DVT prophylaxis is Lovenox 40 mg
Full code
Anticipated Discharge: 24 - 48 hours
Subjective/Interval History
-
Date of Service: March 19, 2025
Patient is still having watery diarrhea, decreased in intensity since yesterday.
Objective Data
-
Labs:
Laboratory Results
03/19/25
07:25
WBC 4.3 L
Hgb 10.3 L
Hct 29.9 L
Plt Count 188
Sodium Pending
Potassium Pending
Chloride Pending
Carbon Dioxide Pending
BUN Pending
Creatinine Pending
Glucose Pending
Calcium Pending
Total Bilirubin Pending
AST Pending
ALT Pending
Alkaline Phosphatase Pending
Vital Signs:
Vital Signs
Temp Pulse Resp BP Pulse Ox
98.4 F 73 16 120/58 96
03/19/25 07:30 03/19/25 07:30 03/19/25 07:30 03/19/25 07:30 03/19/25 07:30
I&O
03/18/25 03/19/25 03/20/25
06:59 06:59 06:59
Intake Total 1780 / 1780 960 / 960
Balance 1780 / 1780 960 / 960
Review of Systems
-
History Source: Patient
All other systems: Reviewed and negative
Abdomen/GI: Reports Abdominal Pain and Diarrhea (watery diarrhea)
Physical Exam
-
General: Well Developed, Well Nourished and Comfortable
Respiratory: Clear to Auscultation
Cardiac: Regular Rhythm and S1/S2
GI: Soft, Nondistended, Normal Bowel Sounds and Tender (Mild left lower tenderness on palpation)
Musculoskeletal: Negative No Clubbing or No Edema
Skin: Warm and Dry
Neuro: Awake, Alert, Oriented and AO x 3
Data Reviewed
-
Labs: Labs Reviewed by me and Discussed with Physician
[2025-03-19 09:21] LABS: ALT (SGPT) 11 U/L (0-35); AST (SGOT) 16 U/L (14-36); Albumin 3.1 g/dl (3.5-5.0); Alkaline Phosphatase 67 U/L (38-126); Blood Urea Nitrogen 4 mg/dl (7-17); Calcium 8.6 mg/dl (8.4-10.2); Carbon Dioxide 29 mmol/L (22-30); Chloride 111 mmol/L (98-107); Estimated Creatinine Clearance 84 ml/min; Glucose 89 mg/dl (70-99); Potassium 3.6 mmol/L (3.5-5.1); Sodium 144 mmol/L (135-145); Total Bilirubin 0.8 mg/dl (0.2-1.3); Total Protein 5.4 g/dl (6.3-8.2); eGFR > 60.00
--- NOTE | 2025-03-19 10:36 | W.PN.UPDATE ---
Addendum entered and electronically signed by Garrett Grayson MD 03/19/25 12:04:
As per infectious diseases recommendations, patient can leave on:
-Bactrim DS 1 tab PO BID and metronidazole 500mg PO BID through 03/25/25.
-Vancomycin 125mg capsule PO QID through 03/30/25.
Medically cleared for discharge.
Total time spent on d/c = 33 min. This included today's physical exam, progress note, review of laboratory and diagnostic data, preparation of discharge documents and prescriptions, and discussions about the pt's hospital course and discharge plan
with the patient and other certified medical coding specialist involved in the patient's care.
Original Note:
Update Note
Progress Note Update
I saw and evaluated the patient. I reviewed the resident�s note and agree with findings and plan as documented in the resident�s note.
Denies abd pain. Frequency if diarrhea improving.
Gen: NAD, AAOx3.
Eyes: EOMI, PERRLA, no scleral icterus.
Neck: supple.
CV: remains RRR, +S1/S2, no m/r/g.
Resp: remains CTAB, no rales, wheezes, or rhonchi.
Abd: remains +BS, soft, NT, ND
Skin: No rashes.
Neuro: CN 2-12 intact, non-focal.
Psych: Normal mood and affect.
CT A/P: Interval recurrence of moderate diverticulitis within the proximal sigmoid colon. No extra luminal gas or fluid collections. There is also severe diverticular disease within the more distal sigmoid colon which appears diffusely thickened,
which is possibly chronic in nature. A sigmoid colitis is also consideration. Trace amount of free fluid in the pelvis.
Recurrent diverticulitis:
-had failed 2 courses of antibiotics [employer]
-with C diff colitis
-cont Dificid/Zosyn
-advanced to LR diet
-ID following
Other problems:
Hyperbilirubinemia: trend
Hyperlipidemia: Restart statin
Osteopenia: Continue [employer]AD cholecalciferol and calcium carbonate
FULL/Lovenox
--- NOTE | 2025-03-19 10:58 | CM ---
CM reviewed chart, patient seen bedside with , initial assessment completed. Patient resides with in a two story home, bedroom on second floor, full flight of stairs to second floor, a few steps to enter. Patient is independent with
ADLs/IADLs, denies use of DME, denies VN/SNF history. Patient confirms PCP Carolin Gomez, pharmacy [facility] [address], confirms prescription coverage. CM requested to check cost of Dificid 200 mg BID, spoke with patients pharmacy, medication not
covered- prescription coverage through [employer] ( , ID # [id number]), update to Dr. Pappas. CM will continue to follow for all discharge planning needs.
Plan; home no needs likely.
--- NOTE | 2025-03-19 11:29 | W.PN.ID1 ---
Date of Service
Date of Service: March 19, 2025
Today's Communication
*At time of discharge, transition to Bactrim DS 1 tab bid and metronidazole 500mg po bid through 03/25/25.
*At time of discharge, transition to Vancomycin 125mg capsule po qid through 03/30/25.
Assessment / Plan
# Sigmoid diverticulitis waxing, waning sxs x 2 months despite 2 courses of outpt abx
- Continue Zosyn (d4)
- *At time of discharge, transition to Bactrim DS 1 tab bid and metronidazole 500mg po bid through 03/25/25.
# C. diff Diarrhea, first episode
- Improving
- Continue fidaxomicin 200mg po bid (d3)
- Unfortunately, her insurance does not cover fidaxomicin.
- *At time of discharge, transition to Vancomycin 125mg capsule po qid through 03/30/25.
- Discussed 20% recurrence rate after first episode of C. diff.
- Enhanced isolation.
Chief Complaint
-: C-diff and Other (Diverticulitis)
Subjective / Review of Systems
Diarrhea much improved. Stool more formed.
2 small BM this am.
Abd pain resolving.
Vital Signs / Physical Exam
Vital Signs
Vital Signs
Temp Pulse Resp BP Pulse Ox
98.4 F 73 16 120/58 96
03/19/25 07:30 03/19/25 07:30 03/19/25 07:30 03/19/25 07:30 03/19/25 09:42
Physical Exam
Constitutional: No Acute Distress and Comfortable
Cardiovascular: Regular Rate and S1/S2
Pulmonary: Clear
Gastrointestinal: Non Tender, Non Distended and Normal Bowel Sounds
Extremities: Negative Edema
Neurological: AO x 3
Objective Data
Lab Data
Lab Results
03/19/25 07:25
03/19/25 07:25
Estimated Creat Clear 84 ml/min 03/19/25 07:25
Total Bilirubin 0.8 mg/dl (0.2-1.3) D 03/19/25 07:25
AST 16 U/L (14-36) 03/19/25 07:25
ALT 11 U/L (0-35) 03/19/25 07:25
Alkaline Phosphatase 67 U/L (38-126) 03/19/25 07:25
Most recent labs reviewed.
Micro Results:
03/17/25 11:01 C. difficile GDH Antigen & Toxins - Final
Feces/Stool Toxigenic C.difficile Positive
03/16/25 08:18 Urine Culture - Final
Urine
03/16/25 CT a/p: Interval recurrence of moderate diverticulitis within the proximal sigmoid colon. No extra luminal gas or fluid collections. There is also severe diverticular disease within the more distal sigmoid colon which appears diffusely
thickened, which is possibly chronic in nature. A sigmoid colitis is also consideration.
03/01/25 CT a/p: Moderate sigmoid diverticulosis. Very mild inflammatory change adjacent to the sigmoid colon, significantly improved compared to prior study, consistent with significantly improved sigmoid diverticulitis.
01/29/25 CT a/p: Findings consistent with acute sigmoid diverticulitis. Pronounced inflammatory change adjacent to the proximal sigmoid colon, and small amount of reactive free fluid along the left paracolic gutter.
Care Review
Plan reviewed with: Physician (Drs. Grayson and Birdie Collazo)
--- NOTE | 2025-03-19 13:06 | W.PN.CRS1 ---
Today's Communication / Plan
-
Regular diet
Okay for discharge
Assessment/Plan
-
59-year-old female with subacute/persistent sigmoid diverticulitis (without abscess or phlegmon)and now superimposed C. difficile colitis
WBC: 4.3, hemoglobin 10.3
- Advance diet to regular
- IV antibiotics per infectious disease
- No plans for surgery during this admission. Will discuss with Dr. Pardo on an outpatient basis regarding elective surgery after she recovers
- Okay for discharge from our perspective. She will need to follow-up in clinic with Dr. Pardo in 2 to 3 weeks. At that time he will decide if she can continue with her colonoscopy appointment early April. Discussed this with the patient.
Subjective Data
Subjective Data
Date of Service: March 19, 2025
Patient states she has no nausea or vomiting. Her pain is improved but she still feels like there is 'something' in her abdomen in the left lower quadrant. She is overall doing much better.
Objective Data
-
Vital Signs
Temp Pulse Resp BP Pulse Ox
98.4 F 73 16 120/58 96
03/19/25 07:30 03/19/25 07:30 03/19/25 07:30 03/19/25 07:30 03/19/25 09:42
Intake & Output
03/18/25 03/19/25 03/20/25
06:59 06:59 06:59
Intake Total 1780 / 1780 960 / 960
Balance 1780 / 1780 960 / 960
Intake:
Oral fluids 480 / 480 960 / 960
IV fluids (Total) 1200 / 1200
IV piggybacks 100 / 100
Other:
Number of approximated MODERATE 1 2
amounts of urine
Number of approximated LARGE 1
amounts of urine
Lab Results
03/19/25 07:25
03/19/25 07:25
Physical Exam
-
General: No Acute Distress and AOx3
Abdomen: Soft, Non Distended and Tender (Very mild left lower quadrant)
Skin: Warm and Dry
--- NOTE | 2025-03-19 14:28 | W.DCSUMMARY ---
Discharge Summary
Discharge Data
Date of Admission: 03/16/25
Date of Discharge: 03/19/25
-
Pending Results: No
Hospital Course
Discharging Physician : Dr. Garrett Grayson and Dr. Will Collazo
Disposition : Home
Primary care physician : Dr. Carolin Gomez
Principal Discharge diagnosis : Recurrent chronic diverticulitis secondary to failure to course of antibiotics, leukopenia, C. difficile positive infection
Chronic Discharge diagnosis : Hyperbilirubinemia, hyperlipidemia, osteopenia
Hospital Course : 59-year-old female with a past medical history of hyperlipidemia and diverticulosis presented with left lower quadrant pain. A abdominal pelvic CT confirmed that she had diverticulitis. She has had 2 episodes of diverticulitis
both confirmed by CT scan of the abdomen 2 times in the past year. She has been on 2 courses of antibiotics, the first time on quinolone plus Flagyl than the second time on Augmentin ( finished just 5 days ago).
Problem #1: Recurrent chronic diverticulitis secondary to failure course of antibiotics---on admission, confirmed by abdominal pelvic CT scan. Moderate diverticulitis within proximal sigmoid colon and severe diverticular disease within distal
sigmoid colon which appears thickened is seen. Infectious disease, general surgery, colorectal surgery are all consulted. Patient was n.p.o., IV fluids are started, IV Zosyn is also started and then on discharge will be transitioned to Bactrim and
Flagyl to be taken at home. Colorectal surgery saw her and recommended nonoperative treatment, follow-up in outpatient office, repeat colonoscopy in 6 to 8 weeks. Tylenol and Toradol are used for pain relief. Patient has been advanced to regular
diet on time of discharge.
Problem #2: C. difficile positive infection---patient started having loose bowel movements on 03/17/2025, she had around 6 loose bowel motions. C. difficile antigen was positive. Infectious disease was consulted and she was started on fidaxomicin,
she is to take her last evening dose before being discharged today. On discharge she has only 1-2 episodes of watery diarrhea overnight, and is to take vancomycin 4 times daily 125 Mg through 03/30/2025. Precautions and hand hygiene with isolation
were practiced. CBC in 1 week with PCP.
Problem #3: Hyperbilirubinemia---total bilirubin is 2.1 and elevated, continue to trend on discharge. CMP in 1 week with PCP.
Problem #4: Hyperlipidemia---atorvastatin to be started on discharge.
Problem #5: Osteopenia---continue prior to arrival cholecalciferol and calcium carbonate on discharge. Calcium levels 8.6 and normal.
Problem #6: Leukopenia---today on discharge WBC is 4.3. CBC in 1 week with PCP.
Important imaging findings :
Abdominal pelvic CT 03/16/2025:
IMPRESSION:
1. Interval recurrence of moderate diverticulitis within the proximal sigmoid colon. No extra luminal gas or fluid collections. There is also severe diverticular disease within the more distal sigmoid colon which appears diffusely thickened, which
is possibly chronic in nature. A sigmoid colitis is also consideration. Trace amount of free fluid in the pelvis.
Procedure findings :
Discharge Plan
-
Patient Disposition: Home (Routine Discharge)
Discharge Diagnosis/Procedures: recurrent chronic diverticulitis secondary to antibiotic failure, leucopenia, C. difficile infection positive, hyperbilirubinemia, hyperlipemia, osteopenia
Condition: Good
Diet: Regular
Activity: As tolerated
Driving Restrictions: Not until seen by your Dr
Bathing Restrictions: None
Blood Work: CBC with pcp in 1 week
CMP with pcp in 1 week
Activity Restrictions/Additional Instructions:
Colonoscopy in 6-8 weeks
Referrals:
Carolin Gomez MD [Family Provider] - in less than 1 week
Roddy Pardo MD [Active] - in two to four weeks
Additional Discharge Medication Instructions: Metronidazole BID 500 mg to be taken twice a day through 03/25/25
Bactrim DS (sulfamethoxazole-trimethoprim 800-160) twice a day through 03/25/25
Vancomycin 125 mg 4 times a day through 03/30/25
Prescriptions:
New
vancomycin 125 mg capsule
125 mg PO QID 11 Days Qty: 44 0RF
acetaminophen [8 Hour Pain Reliever] 650 mg tablet extended release
650 mg PO Q8H Qty: 30 0RF
sulfamethoxazole-trimethoprim [Bactrim DS] 800-160 mg tablet
1 tab PO BID 6 Days Qty: 13 0RF
metronidazole 500 mg tablet
500 mg PO BID 6 Days Qty: 13 0RF
Continued
atorvastatin 10 mg Tablet
10 mg PO DAILY
calcium carbonate 500 mg calcium (1,250 mg) Tablet
500 mg PO DAILY
cholecalciferol (vitamin D3) 25 mcg (1,000 unit) Tablet
25 mcg PO DAILY
Discharge Date and Time
Print Language: ITALIAN
[2025-03-19 16:57] VITALS: BP 117/63
[2025-03-19] MEDS: LOVENOX 40 MG SC (17:09)
[2025-03-19 19:28] LABS: Hepatitis C Antibody Negative (Negative)
== END 2025-03-19 19:25 | disposition home or self-care (01) | DRG 372 ==
LOC: 4 WEST ACU 13:59
PROVIDERS: Internal Medicine; Registered Nurse; ADMITTING PHYSICIAN Internal Medicine; ATTENDING PHYSICIAN Internal Medicine; CONSULT PHYSICIAN Internal Medicine Infectious Disease; CONSULT PHYSICIAN Surgery; EMERGENCY PHYSICIAN Emergency Medicine; FAMILY PHYSICIAN Family Medicine
DX: A04.72 Enterocolitis due to Clostridium difficile, not specified as recurrent (principal); K57.32 Diverticulitis of large intestine without perforation or abscess without bleeding; E78.00 Pure hypercholesterolemia, unspecified; M85.80 Other specified disorders of bone density and structure, unspecified site; E80.6 Other disorders of bilirubin metabolism; D70.2 Other drug-induced agranulocytosis; T36.0X5A Adverse effect of penicillins, initial encounter; Z90.710 Acquired absence of both cervix and uterus; Z79.899 Other long term (current) drug therapy; Z79.2 Long term (current) use of antibiotics
CPT/HCPCS: 74177; 80048; 80053; 81003; 81015; 83690; 83735; 85025; 85027; 86803; 87086; 87324; 87449; 96361; 96365; 99284; Q9967

== ENCOUNTER 2025-05-15 06:30 | Day surgery (SDC) | payer BC, SELFPAY | END 2025-05-15 10:54 | disposition home or self-care (01) | LOC: GI 06:30 | PROVIDERS: ATTENDING PHYSICIAN Internal Medicine | DX: Z12.11 Encounter for screening for malignant neoplasm of colon (principal); K57.30 Diverticulosis of large intestine without perforation or abscess without bleeding; K64.9 Unspecified hemorrhoids | CPT/HCPCS: G0121 ==

== ENCOUNTER 2025-07-24 12:39 | Inpatient (IN) | payer BC, SELFPAY ==
[2025-07-10 08:41] LABS: Hematocrit 36.7 % (37.0-47.0); Hemoglobin 12.2 g/dL (12.0-16.0); Mean Corp Hgb Conc. 33.2 g/dL (33.0-37.0); Mean Corpuscular Volume 85.9 fL (81.0-99.0); Platelet Count 213 10^3/uL (130-400); Red Cell Dist. Width 12.3 % (11.5-14.5)
[2025-07-10 08:49] LABS: INR 0.93; PT 12.8 Sec (11.4-14.6)
[2025-07-10 08:50] LABS: APTT 26.9 Sec (23.4-35.0)
[2025-07-10 09:00] LABS: Glycohemoglobin (HgbA1c) 5.5 % (4.0-5.6)
[2025-07-10 09:22] LABS: ALT (SGPT) 15 U/L (0-35); AST (SGOT) 20 U/L (14-36); Albumin 4.6 g/dl (3.5-5.0); Alkaline Phosphatase 86 U/L (38-126); Blood Urea Nitrogen 12 mg/dl (7-17); Calcium 9.5 mg/dl (8.4-10.2); Carbon Dioxide 28 mmol/L (22-30); Chloride 106 mmol/L (98-107); Glucose 93 mg/dl (70-99); Potassium 4.6 mmol/L (3.5-5.1); Sodium 142 mmol/L (135-145); Total Protein 7.1 g/dl (6.3-8.2); eGFR > 60.00
[2025-07-10 13:57] VITALS: BMI 21.1
[2025-07-24] VITALS (10 sets, daily range): BP systolic 96–128; BP diastolic 45–70; BMI 21.1
[2025-07-24] MEDS: LYRICA 150 MG PO (13:02)
[2025-07-24] MEDS: CELEBREX 200 MG PO (13:02)
[2025-07-24] MEDS: TYLENOL 1000 MG PO (13:02)
[2025-07-24] MEDS: HEPARIN 5000 UNITS SC (13:03)
[2025-07-24] MEDS: NORMOSOL-R/PLASMALYTE-A 1000 IV ×2 (13:10→20:13)
[2025-07-24] MEDS: RELISTOR 12 MG SC (13:12)
--- NOTE | 2025-07-24 18:30 | W.IMMPOSTOP ---
Surgical Immed Post Op Note
-
Primary Surgeon: Roddy Pardo MD
Assisting Surgeon: KALEB Bailon
Pre-op Diagnosis: Chronic diverticulitis
Post-op Diagnosis: Chronic diverticulitis
Procedure Performed: Robotic sigmoidectomy, lysis of adhesions, mesenteric angiography with ICG, flexible sigmoidoscopy, laparoscopic TAP block
Anesthesia Type: General
Specimen / Cultures: Rectosigmoid colon
Estimated Blood Loss: 50 mL
IVF: 2.5 L
UOP: 300 mL
Complications: None
Operative Findings: Obtained access via Veress; placed 4 ports plus assist port and created Pfannenstiel incision; bilateral ureters and iliac vessels easily identified due to minimal retroperitoneal adiposity; adhesions from the sigmoid colon to
the left pelvic brim and left pelvis; performed medial to lateral mobilization; divided the ELIDA and left colic; took down lateral attachments; mobilize rectosigmoid to 2 to 3 cm above anterior peritoneal reflection; performed flexible sigmoidoscopy
with minimal liquid stool that was suctioned; divided just distal to the rectosigmoid junction with 60 mm green load; ligated the mesentery up to the junction of the sigmoid and descending colon; divided the IMV at the takeoff of the posterior
pancreas; divided sigmoid�descending colon with 60 mm blue load on healthy bowel; performed EEA stapled anastomosis, donuts intact x 2, negative leak test, anastomosis intact on flexible sigmoidoscopy
--- NOTE | 2025-07-24 18:37 | OR.RPT ---
Operative Report
Operative Report
DATE OF OPERATION: 07/24/2025
SURGEON: Roddy Pardo MD
PREOPERATIVE DIAGNOSIS: Chronic diverticulitis, mild sigmoid stenosis
POSTOPERATIVE DIAGNOSIS: Chronic diverticulitis, mild sigmoid stenosis
OPERATION: Robotic sigmoidectomy, take-down of the splenic flexure, adhesiolysis greater than 30 minutes, mesenteric angiography with ICG, flexible sigmoidoscopy, laparoscopic TAP block
ASSISTANTS:
1. KALEB Bailon
ANESTHESIA: General
ESTIMATED BLOOD LOSS: 50 mL
IVF: 2.5 L
URINE OUTPUT: 300 mL
FINDINGS:
1. Thickening of the sigmoid colon with adhesions to the left pelvis; thickening extending to the proximal sigmoid colon
2. Performed EEA stapled anastomosis from the proximal rectum to the descending�sigmoid colon junction; donuts intact x 2, negative leak test, anastomosis intact on flexible sigmoidoscopy
SPECIMENS:
1. Rectosigmoid colon
DRAINS: None
COMPLICATIONS: No immediate complications.
INDICATIONS: The patient is a 59-year-old female who was found to have diverticulitis back in January 2025. She was treated with antibiotics, but her symptoms persisted. She underwent another CT scan in February 2025 which showed worsening
diverticulitis, but was concurrently positive for C. difficile. She ultimately improved with antibiotics, but continued having intermittent dull left-sided pain. She underwent colonoscopy and was found to have mild sigmoid stenosis requiring
copious lavage in order to traverse. Due to the persistent nature of her diverticulitis associated with mild sigmoid stenosis, I offered her surgery, but also explained the role of continued nonoperative measures. The operation was discussed with
the patient in detail, including the risks, benefits and alternatives. Risks described included, but not limited to, bleeding, infection, anastomotic leak, damage to nearby structures (i.e.- ureter, bowel, solid organs), incisional hernia, need for
ostomy creation, conversion to open, recurrent diverticulitis and anesthetic risks. The patient understood well and elected to proceed with surgery.
PROCEDURE IN DETAIL: The patient was taken to the operating room and placed on the operating table in supine position. Sequential compression devices were placed bilaterally. General anesthesia was induced and the patient was intubated without
complication. The patient was placed in lithotomy position with both arms tucked. Diaz catheter was placed with sterile technique. The abdomen was prepped and draped in a sterile fashion. A time-out was performed verifying the correct patient,
procedure, operative site, positioning, and special equipment. Anesthesia placed an orogastric tube. Preoperative antibiotics were given. A marking pen was used to candy out the midline.
An 8 mm incision at Jeter's point was made with an 11 blade scalpel. A Veress needle was used to gain abdominal access. After 3 clicks, the insufflation was connected to the Veress needle and the opening pressure was noted to be less than 8 mmHg.
The abdomen was insufflated to a pressure of 12 mmHg. An 8 mm robotic trocar was inserted. The robotic camera was advanced and intra-abdominal placement was confirmed. The abdomen was examined. No injuries were noted from port entry or from the
Veress needle. No concerning lesions were noted on the surface of the liver or the peritoneum. The remaining three 8mm robotic ports were placed under direct visualization in a diagonal fashion from Jeter's point to the right lower quadrant, as
well as an 8mm assist port in the right lateral mid abdomen, taking care to avoid injury to the right epigastric vessels. The left upper quadrant port was changed to the air seal port.
A 4 cm Pfannenstiel incision was created 2 fingerbreadths above the pubic symphysis. This was carried down to the anterior fascia with electrocautery and hemostasis was assured. The fascia was incised to just beyond the length of the skin
incision. The fascia was grasped with Treasure's and elevated. The adhesions to the anterior fascia were taken down bluntly from the rectus abdominis muscle and the midline attachment was taken down with electrocautery. This was performed both
superiorly and inferiorly to our incision. The rectus was split along the midline, first scoring the linea alba with electrocautery, then bluntly with a Trish clamp to reveal the peritoneum, which was grasped and elevated with Kellys. The
peritoneum was incised with Metzenbaum scissors, taking care to avoid injury to intraperitoneal structures. The peritoneum was incised cranially and caudally to the greatest extent that our incision would allow, taking care to avoid injury to the
bladder. A small Gagan with port cap was placed and a robotic 12 mm port was placed through the port cap. The patient was placed in steep Trendelenburg and [id number]. The robot was docked from the patient's left side. From the RLQ to
Jeter's point, the instruments introduced were the scissors, camera, bipolar grasper and tip-up grasper, respectively.
The small bowel was retracted out of the pelvis and towards the right upper quadrant. Some adhesions were noted from the left pelvic sidewall to the sigmoid colon, which were taken down with electrocautery. The thickening of the sigmoid extended
to the junction of the descending and proximal sigmoid colon. Knowing this, I anticipated needing to take the splenic flexure down for adequate reach. The sigmoid was grasped and elevated to commence a medial to lateral dissection. The peritoneum
overlying the sacral promontory was scored and entered. This dissection was taken medially toward the left ureter and superiorly towards the ELIDA pedicle, taking care to avoid injury to the hypogastric nerves. The bilateral ureters and iliac
vessels were promptly identified due to minimal retroperitoneal fat and easily avoided.
I continued the dissection inferiorly, posteriorly to the rectum in the presacral plane, and took this to just beyond the sacral promontory. I worked superiorly toward the ELIDA pedicle. I dissected this circumferentially, taking care to avoid injury
to the hypogastric nerves. I divided this with the vessel sealer. The ELIDA stump was completely hemostatic. As I continued the dissection, I identified the left colic coming off of the ELIDA stump. I circumferentially dissected this and divided
with the vessel sealer to prevent tension on the anastomosis. I grasped the specimen side of the ELIDA pedicle and elevated this in order to continue a medial to lateral dissection of the left colon and splenic flexure. I carried this dissection up
to the inferior border of the pancreas, taking care to avoid injury to the left ureter and kidney. I took down the lateral attachments next, taking this up to the splenic flexure. I divided the omental adhesions from the proximal descending colon
and splenic flexure. Next, I elevated the omentum from the mid-transverse colon and divided the gastrocolic ligament in order to enter the lesser sac. I confirmed entry into the lesser sac by visualizing the proximal wall of the stomach. I
divided the remainder of the gastrocolic ligament distally along the transverse colon and joined my distal dissection, completely mobilizing the splenic flexure.
I turned back toward the pelvis to complete the rectosigmoid mobilization. I used the vessel sealer to connect the posterior dissection to the right lateral dissection. I retracted the rectosigmoid junction to the patient's right, and then scored
the left lateral peritoneum and used the vessel sealer to divide the lateral stalk to the same point as my right lateral dissection. I performed a flexible sigmoidoscopy. There was minimal liquid stool, which I suctioned. There was no inflammation
noted within the rectum or distal sigmoid colon. I passed up EEA sizers in progressively increasing size to ensure adequate circumference and reach. I selected an approximate transection point just distal to the rectosigmoid junction. I went back
to the console. I retracted the rectosigmoid anteriorly and created a tunnel through the mesorectum. I ligated it with the vessel sealer, ensuring hemostasis at the superior rectal artery. I stapled and divided at this point with the 60 mm robotic
stapler using the green load.
I circumferentially dissected the IMV and divided close to its takeoff from the pancreas using the vessel sealer. I freed up the ligament of Treitz from the duodenum to improve reach. For my proximal transection point, I assessed the sigmoid and
distal descending colon. There was inflammation and thickening of the colon wall up to the level of the junction of the descending and sigmoid colon. I selected a point just proximal to this area on healthy colon. I elevated the colon at this
point with my tip up grasper. I fanned out the mesentery from the divided ELIDA stump. I ligated the mesentery from this spot to my proposed transection, taking care to avoid injury to the left ureter. Anesthesia injected ICG and perfusion was
confirmed to my proposed transection point.
I elected to proceed with an intracorporeal end-to-end stapled anastomosis with EEA stapler. A colotomy in the devascularized segment of colon was created using the robotic scissors at a point distal to my proposed proximal transection point. The
anvil with a long Prolene suture attached at the tip was carefully passed through the colotomy and advanced proximally up the descending colon, with the long Prolene remaining outside of the colon. The colotomy was closed around the Prolene stitch
using a V-Loc running stitch. The robotic stapler with a blue load was used to staple and divide the descending colon at our proposed transection point where adequate perfusion was noted on firefly. The specimen was placed in the left upper
quadrant. The Prolene attached to the anvil was grasped and pulled through the staple line after removing a few janeth. I grasped and elevated the anvil and cleaned up the staple line from intervening mesentery and fat. The anvil was seated along
the staple line nicely without intervening diverticula or mesentery. Then, the specimen was removed through the Pfannenstiel port and passed off for pathology.
I checked the reach of the proposed anastomosis once more and it was plenty adequate. The operative field was surveyed and hemostasis was ensured. Sizers were passed up the rectum once more to ensure adequate circumference and length. The EEA
stapler was passed transanally to the distal staple line. The pin was extended and was connected with the anvil. After ensuring there was no twist to the mesentery and there was no tension, the EEA stapler was closed for 1 minute and then fired.
It was carefully removed. Both donuts were intact. A leak test was performed by filling the pelvis with saline, occluding the proximal lumen and insufflating with the flexible sigmoidoscope. There was no evidence of leak from the anastomosis.
Endoscopically, the anastomosis was intact without evidence of bleeding. The colorectum was desufflated and the flexible sigmoidoscope removed.
I checked the operative field once more and it was hemostatic. The robotic instruments were removed and the robot was undocked. Using laparoscopic visualization, a TAP block was performed using a total of 30 mL of 0.25% Marcaine with epinephrine
mixed with dexamethasone and injecting in the transverse abdominis plane bilaterally. The remaining ports were removed under direct visualization and no bleeding was noted. The Pfannenstiel incision was closed in layers. First, the peritoneum was
closed with a running 0-Vicryl stitch. Then, the anterior fascia was closed using a #1 Stratafix suture. The incisions were irrigated. The remaining 30 cc of 0.25% Marcaine with epinephrine mixed with dexamethasone were injected around the
incisions. The incisions were closed with running subcuticular 4-0 Monocryl and dressed with Dermabond.
At this point, the procedure was complete. The patient was awoken and extubated without complication. All needle, sponge and instrument counts were reported as correct. The patient tolerated the procedure well and was transferred to the recovery
room in stable condition with the diaz in place.
DICTATED BY: Roddy Pardo MD
[2025-07-24] MEDS: GENOPTIC 0.3% EYE DROPS 1 DROP OPHTH (20:12)
[2025-07-24] MEDS: TORADOL 15 MG IV (20:30)
[2025-07-24] MEDS: OSCAL CAL 500 PO (23:09)
[2025-07-25] MEDS: TYLENOL 1000 MG PO ×4 (00:52→17:19)
[2025-07-25] MEDS: TORADOL 15 MG IV ×4 (02:18→19:33)
[2025-07-25 03:00] VITALS: BP 123/52
[2025-07-25 06:02] LABS: Hematocrit 32.3 % (37.0-47.0); Hemoglobin 11.1 g/dL (12.0-16.0); Mean Corp Hgb Conc. 34.4 g/dL (33.0-37.0); Mean Corpuscular Volume 83.5 fL (81.0-99.0); Nucleated Red Blood Cells % 0 %; Platelet Count 171 10^3/uL (130-400); Red Cell Dist. Width 11.9 % (11.5-14.5)
[2025-07-25 06:27] LABS: Blood Urea Nitrogen 9 mg/dl (7-17); Calcium 9.0 mg/dl (8.4-10.2); Carbon Dioxide 26 mmol/L (22-30); Chloride 107 mmol/L (98-107); Estimated Creatinine Clearance 87 ml/min; Glucose 127 mg/dl (70-99); Magnesium 2.0 mg/dl (1.6-2.3); Potassium 4.2 mmol/L (3.5-5.1); Sodium 138 mmol/L (135-145); eGFR > 60.00
[2025-07-25 08:30] VITALS: BP 102/57
[2025-07-25] MEDS: VISBIOME 1 CAP PO (08:59)
[2025-07-25] MEDS: OSCAL CAL 500 1000 MG PO ×2 (08:59→19:33)
[2025-07-25] MEDS: LIPITOR 10 MG PO (08:59)
[2025-07-25] MEDS: VITAMIN D3 (cholecalciferol) 50 MCG PO (09:00)
[2025-07-25] MEDS: RELISTOR 12 MG SC (09:01)
--- NOTE | 2025-07-25 09:04 | W.PN.CRS1 ---
Today's Communication / Plan
-
Lovenox
DC Diaz
Continue regular diet
Possible DC later today
Assessment/Plan
-
POD#1 Robotic sigmoidectomy, lysis of adhesions, mesenteric angiography with ICG, flexible sigmoidoscopy, laparoscopic TAP block
Hgb 11.1. WBC 7.7. Vitals normal.
-Continue regular diet
-DC IVFs
-DC diaz
-OR pathology pending
-Lovenox for DVT prophylaxis. TEDS/SCDS in place.
-OOB as tolerated
-Possible dc later today. All discharge instructions discussed with patient including medications, activity levels, and follow-up. Follow-up with Dr. Pardo in the office in 2 weeks. OR pathology pending.
Subjective Data
Procedure
07/24/2025 - Robotic sigmoidectomy, lysis of adhesions, mesenteric angiography with ICG, flexible sigmoidoscopy, laparoscopic TAP block
Subjective Data
Date of Service: July 25, 2025
Patient states she feels well. She has no nausea or vomiting. Mild abdominal pain. Had flatus yesterday.
Objective Data
-
Vital Signs
Temp Pulse Resp BP Pulse Ox
98.9 F 90 18 102/57 97
07/25/25 08:30 07/25/25 08:30 07/25/25 08:30 07/25/25 08:30 07/25/25 08:30
Intake & Output
07/24/25 07/25/25 07/26/25
06:59 06:59 06:59
Intake Total 1800 / 1800
Output Total 2099
Balance -300 / -300
Intake:
Oral fluids 900 / 900
IV fluids (Total) 900 / 900
Normosal 300 / 300
Output:
Urine, Diaz 2099
Lab Results
09/03/25 05:25
07/25/25 05:25
Physical Exam
-
General: No Acute Distress and AOx3
Abdomen: Soft, Non Distended and Non Tender
Skin: Warm and Dry
Incision: Clear, Dry, Intact
[2025-07-25 11:46] VITALS: BP 117/67
--- NOTE | 2025-07-25 14:51 | CM ---
CM following re: discharge planning.
Reviewed pt's chart, met with pt.
Pt is a 59 year old female, admitted with primary dx of POD 1 robotic sigmoidectomy.
pt reports she lives with spouse 2SH, 3 steps to enter, has 2 supportive children. pt described herself as independent in all areas [employer], drives, works. pt stated she will not need any after care VN services at discharge and her will
transport home.
[facility]
Pharmacy: [facility].
D/C plan: home no needs. Spouse to transport.
[2025-07-25 15:00] VITALS: BP 121/55
[2025-07-25] MEDS: NORMOSOL-R/PLASMALYTE-A IV (15:28)
[2025-07-25] MEDS: LOVENOX 40 MG SC (17:18)
[2025-07-25 19:00] VITALS: BP 124/69
[2025-07-25 23:00] VITALS: BP 100/63
[2025-07-26] MEDS: TYLENOL 1000 MG PO ×3 (00:54→11:12)
[2025-07-26] MEDS: TORADOL 15 MG IV ×2 (01:02→08:13)
[2025-07-26 03:00] VITALS: BP 114/60
[2025-07-26 05:59] VITALS: BMI 20.6
[2025-07-26 06:38] LABS: Hematocrit 30.4 % (37.0-47.0); Hemoglobin 10.2 g/dL (12.0-16.0); Mean Corp Hgb Conc. 33.6 g/dL (33.0-37.0); Mean Corpuscular Volume 84.2 fL (81.0-99.0); Nucleated Red Blood Cells % 0 %; Platelet Count 162 10^3/uL (130-400); Red Cell Dist. Width 12.3 % (11.5-14.5)
[2025-07-26 07:05] VITALS: BP 131/68
[2025-07-26] MEDS: RELISTOR 12 MG SC (07:42)
[2025-07-26] MEDS: OSCAL CAL 500 1000 MG PO (07:46)
[2025-07-26] MEDS: VITAMIN D3 (cholecalciferol) 50 MCG PO (07:47)
[2025-07-26] MEDS: VISBIOME 1 CAP PO (07:47)
[2025-07-26] MEDS: LIPITOR 10 MG PO (07:47)
--- NOTE | 2025-07-26 09:41 | W.PN.CRS1 ---
Today's Communication / Plan
-
Discharge
Assessment/Plan
-
POD#2 Robotic sigmoidectomy, lysis of adhesions, mesenteric angiography with ICG, flexible sigmoidoscopy, laparoscopic TAP block
Hgb 10.2 (11.1). WBC (7.2) 7.7. Vitals normal.
-Continue regular diet
- Voiding post Moran removal
-OR pathology pending
-Lovenox for DVT prophylaxis. TEDS/SCDS in place.
-OOB as tolerated
-Okay for discharge today. Discussed with patient who is in agreement. All discharge instructions were discussed with patient medications, active levels, and follow-up. All questions were answered. Follow-up with Dr. Pardo in 2 weeks.
Subjective Data
Procedure
07/24/2025 - Robotic sigmoidectomy, lysis of adhesions, mesenteric angiography with ICG, flexible sigmoidoscopy, laparoscopic TAP block
Subjective Data
Date of Service: July 26, 2025
Patient states that she is feeling well. She urinated without difficulty. She is sore but has no real pain. She denies any bleeding. She denies nausea or vomiting. She is tolerating diet. She is ready to go home.
Objective Data
-
Vital Signs
Temp Pulse Resp BP Pulse Ox
98.1 F 64 16 131/68 98
07/26/25 07:05 07/26/25 07:05 07/26/25 07:05 07/26/25 07:05 07/26/25 07:05
Intake & Output
07/25/25 07/26/25 07/27/25
06:59 06:59 06:59
Intake Total 1800 / 1800 1000 / 1000
Output Total 2100 / 2100 650 / 650
Balance -300 / -300 350 / 350
Intake:
Oral fluids 900 / 900 1000 / 1000
IV fluids (Total) 900 / 900
Normosal 300 / 300
Output:
Urine, Moran 2099 / 2099 650 / 650
Other:
Number of approximated MODERATE 2
amounts of urine
Number of unmeasured liquid
stools
Rectum 3
Lab Results
07/26/25 06:14
07/25/25 05:25
Physical Exam
-
General: No Acute Distress and AOx3
Abdomen: Soft, Non Distended and Non Tender
Skin: Warm and Dry
Incision: Clear, Dry, Intact
--- NOTE | 2025-07-26 09:58 | CM ---
Following up on patient. STU Puga saw the discharge order and check with the RN, there are no needs for this patient.
Plan: Discharge home with no needs.
[2025-07-26 11:35] VITALS: BP 155/70
== END 2025-07-26 12:42 | disposition home or self-care (01) | DRG 330 ==
LOC: 2 SOUTH 12:39
PROVIDERS: Physician Assistant; ADMITTING PHYSICIAN Surgery; FAMILY PHYSICIAN Family Medicine
PROC: 0DNU4ZZ Release Omentum, Percutaneous Endoscopic Approach (ICD-10-PCS; 2025-07-24)
PROC: 0DBN4ZZ Excision of Sigmoid Colon, Percutaneous Endoscopic Approach (ICD-10-PCS; 2025-07-24)
PROC: 8E0W4CZ Robotic Assisted Procedure of Trunk Region, Percutaneous Endoscopic Approach (ICD-10-PCS; 2025-07-24)
DX: K57.92 Diverticulitis of intestine, part unspecified, without perforation or abscess without bleeding (principal); K56.699 Other intestinal obstruction unspecified as to partial versus complete obstruction; K57.32 Diverticulitis of large intestine without perforation or abscess without bleeding; N73.6 Female pelvic peritoneal adhesions (postinfective)
CPT/HCPCS: 36415; 71046; 80048; 80053; 83036; 83735; 85025; 85027; 85610; 85730; 86850; 86900; 86901; 88307; 93005